=== PATIENT | female | born 1950 | race Caucasian/White ===

== ENCOUNTER → 2020-01-08 16:01 | Outpatient (CLI) | payer MEDICARE, SELFPAY ==
--- NOTE | ~2020-01-08 | XR_ITS ---
EXAMINATION:[id number] DATE: 01/08/2020 16:20 INDICATION: Neck pain TECHNIQUE: AP, lateral, lateral swimmers and odontoid views of the cervical spine are provided. COMPARISON: 09/15/2013 FINDINGS: Alignment is normal. Odontoid is intact. Normal atlantoaxial interval. Vertebral body heights are no rmal. Disc spaces are normal. 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 Mild facet oste oarthritis at C7-T1. Prevertebral soft tissues are normal. Visualized apices of the lungs are clear. IMPRESSION: 1. Minimal cervical spondylosis. Reviewed, dictated and finalized at location A. 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
== END ==
PROVIDERS: PCP Family Medicine; Visit Provider Nurse Practitioner Family
DX: M47.813 Spondylosis without myelopathy or radiculopathy, cervicothoracic region (principal)
CPT/HCPCS: 72040

== ENCOUNTER 2021-07-23 02:12 | Day surgery (SDC) | payer MEDICARE, SELFPAY ==
[2021-07-20 12:24] VITALS: BMI 27.8
--- NOTE | 2021-07-22 15:46 | P.PNAN_ITS ---
Anes - Initial Pre Proc Eval Procedure: Operation Date: 07/23/21 08:15 Proposed Procedures p Colonoscopy - Jake León DO Date/Time: 07/22/21 15:46 Surgeon: Jake León DO Pre Op Diagnosis: Rectal Bleeding Patient Data Age: 71 Gender: F Height: 1.63 m Weight: 73.7 kg Allergies Allergy/AdvReac Type Severity Reaction Status Date / Time No Known Allergies Allergy Verified 07/23/21 06:54 Home Medications Medication Instructions Recorded Confirmed Type alprazolam 0.25 mg tablet (Xanax) 0.25 mg PO BID PRN Anxiety 07/02/21 07/23/21 History amitriptyline 25 mg tablet 25 mg PO QHS 07/02/21 07/23/21 History cholecalciferol (vitamin D3) 25 25 mcg PO DAILY 07/02/21 07/23/21 History mcg (1,000 unit) capsule cyclobenzaprine 10 mg tablet 10 mg PO TID 07/02/21 07/23/21 History diclofenac sodium 75 mg 75 mg PO BID 07/02/21 07/23/21 History tablet,delayed release gabapentin 300 mg capsule 300 mg PO DAILY 07/02/21 07/23/21 History propranolol 80 mg capsule,24 80 mg PO DAILY 07/02/21 07/23/21 History hr,extended release vitamin B complex (B 1 tablet PO DAILY 07/02/21 07/23/21 History Complex-Vitamin B12 tablet) Patient hx anesthesia problems: none Family hx anesthesia problems: none Results Review: All pre-operative results and documents have been reviewed as part of the pre- operative evaluation. [facility] Past Medical History Medical History Depression High cholesterol Hypertension Surgical History Surgical History History of carpal tunnel release Family History Family History Father Patient's father is , Onset Age: 79 Cerebrovascular accident Mother Family history of hypothyroidism Hypertension Dementia Patient's mother is Social History Social History Smoking status: Never smoker Alcohol intake: never Substance use: never Substance use type: does not use Living arrangements: with family Spiritual care concerns: No Anes - Eval Final PreProcedure Day of Procedure 07/22/21 15:46 Patient weight: overweight Heart: regular rate and rhythm Lungs: clear to auscultation Airway: Mallampati scale class II Neurological: alert and oriented Last oral intake: >/= 8 hours ASA classification: II Emergent: no Anesthetic plan: proceed Anesthesia type and monitoring: general GIVS and standard monitoring Results Review: All pre-operative results and documents have been reviewed as part of the pre- operative evaluation. Informed Consent: The patient's anesthetic plan and its attendant risks and benefits were discussed with the patient/family/POA. Questions were solicited and answers provided to the satisfaction of the patient/family/POA.
[2021-07-23 06:55] VITALS: BP 128/69; PULSE 88; RESP 16; TEMP 36.4; O2SAT 98; BMI 27.3
[2021-07-23] MEDS: LACTATED RINGERS 1,000 ML 150 ML IV CONT (07:04)
--- NOTE | 2021-07-23 08:23 | WPDHPUPDATE1 ---
History and Physical Update Update Date/Time: 07/23/21 08:23 History and Physical has been reviewed, including an updated exam of the patient. There are NO changes in the patient's condition. Risks, benefits, and alternatives have been discussed and questions answered. Patient agrees to proceed with procedure.
[2021-07-23 09:00] VITALS: BP 145/71; PULSE 70; RESP 16; O2SAT 100
[2021-07-23 09:10] VITALS: BP 103/68; PULSE 66; RESP 15; O2SAT 100
[2021-07-23 09:20] VITALS: BP 140/81; PULSE 66; RESP 18; O2SAT 100
== END 2021-07-23 09:42 | disposition home or self-care (01) ==
PROVIDERS: PCP Family Medicine; Visit Provider Surgery
PROC: 0DJD8ZZ Inspection of Lower Intestinal Tract, Via Natural or Artificial Opening Endoscopic (ICD-10-PCS; CPT 45378; principal; 2021-07-23 08:15)
DX: Z12.11 Encounter for screening for malignant neoplasm of colon (principal); C20 Malignant neoplasm of rectum; D12.0 Benign neoplasm of cecum; D12.5 Benign neoplasm of sigmoid colon; K59.00 Constipation, unspecified; K62.5 Hemorrhage of anus and rectum; I10 Essential (primary) hypertension; E78.00 Pure hypercholesterolemia, unspecified; F32.A Depression, unspecified
CPT/HCPCS: 45380; 45381; 88305; J2704; J7120

== ENCOUNTER 2021-07-27 10:22 | Outpatient (CLI) | payer MEDICARE, SELFPAY ==
[2021-07-27 11:10] LABS: Hematocrit 39.1 % (37.0-47.0); Hemoglobin 11.9 g/dL (12.0-15.0); Mean Corpuscular HGB Conc 30.4 g/dl (32-36); Mean Corpuscular Hemoglobin 24.6 pg (26-34); Mean Platelet Volume 9.9 fl (7.4-10.4); Platelet Count Result 331 k/mm3 (150-375); Red Blood Count 4.83 M/mm3 (4.2-5.4)
[2021-07-27 11:42] LABS: Alanine Aminotransferase 14 U/L (6-35); Albumin Level 3.8 g/dL (3.5-5.1); Alkaline Phosphatase 75 U/L (38-126); Aspartate Amino Transferase 27 U/L (14-36); Bilirubin,Total 0.3 mg/dL (0.2-1.3)
[2021-07-27 12:17] LABS: Carcinoembryonic Antigen 1.3 ng/mL (0.0-3.0)
== END 2021-07-27 10:23 | disposition home or self-care (01) ==
LOC: ANHLAB 10:25
PROVIDERS: PCP Family Medicine; Visit Provider Surgery
DX: C20 Malignant neoplasm of rectum (principal)
CPT/HCPCS: 36415; 80076; 82378; 85027

== ENCOUNTER → 2021-07-29 14:09 | Outpatient (CLI) | payer MEDICARE, SELFPAY ==
--- NOTE | ~2021-07-29 | CT_ITS ---
EXAMINATION: CT chest abdomen pelvis w con DATE: 07/29/2021 14:49 INDICATION: Malignant neoplasm of rectum. TECHNIQUE: Computed tomography (CT) of the chest, abdomen, and pelvis was performed with 100 mL Omnip aque 300 intravenous contrast. Automated exposure control and iterative reconstruction technique were employed. The dose-length product was 818.02 mGy-cm. COMPARISON: None FINDINGS: CHEST CT: There is mild scarring at the lung apices. There is mild atelectasis in the lungs. No pleural effusio n. The heart size is normal. No pericardial effusion. There is mild thoracic spondylosis. ABDOMEN/PELVIS CT: There is a 6 mm cyst in the liver. The gallbladder, spleen, pancreas, and adrenal glands are normal. There are cysts in right kidney measuring up to 1.6 cm. Left kidney is normal. There is focal wall th ickening of the rectum, consistent with primary malignancy. There are enlarged perirectal and left in ternal iliac lymph nodes. For example, a perirectal node measures 1.5 x 2.0 cm. There are no dilated loops of bowel. The appendix is normal. Pelvic floor dysfunction is noted. There is trace ascites. Th ere are chronic bilateral L5 pars defects. There is 6 mm anterolisthesis of L5 on S1. There is mild l umbar spondylosis. IMPRESSION: 1. Focal wall thickening of the rectum, consistent with primary malignancy. 2. Perirectal and left internal iliac lymphadenopathy, consistent with metastatic disease. Reviewed, dictated and finalized at location A. IMPRESSION: 1. Focal wall thickening of the rectum, consistent with primary malignancy. 2. Perirectal and left internal iliac lymphadenopathy, consistent with metastat ic disease.
[2021-07-29 14:35] LABS: Estimated Glomerular Filt Rate > 60
== END ==
PROVIDERS: PCP Family Medicine; Visit Provider Surgery
DX: C20 Malignant neoplasm of rectum (principal); R59.0 Localized enlarged lymph nodes
CPT/HCPCS: 71260; 74177; Q9967

== ENCOUNTER → 2021-08-04 11:50 | Outpatient (CLI) | payer MEDICARE, SELFPAY ==
--- NOTE | ~2021-08-04 | MR_ITS ---
EXAMINATION: MR pelvis wo/w con INDICATION: Rectal cancer TECHNIQUE: Coronal SSFSE ARC, Coronal, Axial, and Sagittal T2 FRFSE small [id number], Coronal 2D F IESTA FatSat, Axial SSFSE BH ARC, Axial 3D DualEcho BH, Axial STIR, Axial DWI b=500, pre and dynamic postcontrast Axial LAVA ARC COMPARISON: CT, 07/29/2021 CONTRAST: Multihance, 14 cc FINDINGS: Again seen is irregular wall thickening involving an approximately 6.2 cm segment of the re ctum, consistent with known malignancy. This measures up to 1.6 cm in thickness. Although somewhat li mited by motion artifact, there appears to be a focus of tumor penetrating through the rectal wall an d abutting the mesorectal fascia at the left posterolateral aspect of the tumor. Enlarged perirectal lymph nodes measure up to 1.4 cm. Left internal iliac lymph nodes are also noted which measure up to 1 cm. There are no dilated loops of bowel. Mild lumbar spondylosis is noted. IMPRESSION: 1. Irregular wall thickening of the rectum, consistent with known malignancy, with invasion through t he rectal and abutting the mesorectal fascia. 2. Pelvic lymphadenopathy, consistent with metastatic disease. Reviewed, dictated and finalized at location A. IMPRESSION: 1. Irregular wall thickening of the rectum, consistent with known malignancy, w ith invasion through the rectal and abutting the mesorectal fascia. 2. Pelvic lymphadenopathy, consistent with metastatic disease.
== END ==
PROVIDERS: PCP Family Medicine; Visit Provider Surgery
DX: C20 Malignant neoplasm of rectum (principal); R59.0 Localized enlarged lymph nodes
CPT/HCPCS: 72197; A9577

== ENCOUNTER 2021-10-01 14:22 | Outpatient (CLI) | payer MEDICARE, SELFPAY ==
[2021-10-01 15:24] LABS: SARS-CoV-2 RNA PCR Negative (Negative)
== END 2021-10-01 14:23 | disposition home or self-care (01) ==
LOC: CHSLAB 14:25
PROVIDERS: PCP Family Medicine; Visit Provider Family Medicine
DX: Z20.822 Contact with and (suspected) exposure to COVID-19 (principal)
CPT/HCPCS: C9803; U0003; U0005

== ENCOUNTER 2023-04-21 00:04 | Day surgery (SDC) | payer MEDICARE, SELFPAY ==
[2023-04-11 15:00] VITALS: BMI 26.6
--- NOTE | 2023-04-19 09:00 | SUR.PREOP ---
Patient called regarding upcoming procedure. Reviewed preop instructions, appointment times, and procedure prep. Instructed pt to bring stoma supplies with her for the procedure.
[2023-04-21 06:22] VITALS: BP 157/85; PULSE 70; RESP 18; TEMP 36.1; O2SAT 100
[2023-04-21] MEDS: LACTATED RINGERS 1,000 ML 150 ML IV CONT (06:38)
--- NOTE | 2023-04-21 07:28 | PM.IMHP ---
H&P: HPI History of Present Illness Date/Time: 04/21/23 07:28 Chief Complaint: Rectal cancer Narrative: this is a 73-year-old woman who presents for follow-up colonoscopy after recent diagnosis of rectal cancer 2 years ago. She underwent neoadjuvant chemoradiation followed by abdominoperineal resection with permanent colostomy in April of 2022. She denies any significant changes since. Her ostomy has been functioning well. Review of Systems Review of Systems: All systems reviewed & are unremarkable except as noted in HPI and below Constitutional: Constitutional: Denies chills, Denies fever(s), Denies headache(s) and Denies weight loss Eyes: Eyes: Denies change in vision ENT: Denies dizziness, Denies headache(s), Denies neck mass and Denies throat swelling Cardiovascular: Cardiovascular: Denies chest pain, Denies lightheadedness and Denies dyspnea Respiratory: Respiratory: Denies cough, Denies dyspnea and Denies wheezing Gastrointestinal: Gastrointestinal: Denies abdominal pain, Denies change in bowel habits, Denies nausea and Denies vomiting Genitourinary: Genitourinary: Denies hematuria and Denies dysuria Musculoskeletal: Musculoskeletal: Reports as per HPI Integumentary/Breasts: Skin/Breast: Reports as per HPI Neurologic: Denies dizziness and Denies headache(s) Allergic/Immunologic: Allergic/Immunologic: Denies throat swelling and Denies wheezing [facility] Past Medical History Medical History Depression High cholesterol Hypertension Surgical History Surgical History History of carpal tunnel release Family History Family History Father Patient's father is , Onset Age: 79 Cerebrovascular accident Mother Family history of hypothyroidism Hypertension Dementia Patient's mother is Social History Social History Smoking status: Never smoker Alcohol intake: never Substance use: never Substance use type: does not use Living arrangements: with family Occupation/Education: retired Spiritual care concerns: No Meds Home Medications and Allergies Home Medications Medication Instructions Recorded Confirmed Type alprazolam 0.25 mg tablet (Xanax) 0.25 mg PO BID PRN Anxiety 07/02/21 04/11/23 History amitriptyline 25 mg tablet 25 mg PO QHS 07/02/21 04/11/23 History cholecalciferol (vitamin D3) 25 25 mcg PO DAILY 07/02/21 04/11/23 History mcg (1,000 unit) capsule cyclobenzaprine 10 mg tablet 10 mg PO BID 07/02/21 04/11/23 History propranolol 80 mg capsule,24 80 mg PO DAILY 07/02/21 04/21/23 History hr,extended release ascorbic acid (vitamin C) 500 mg 500 mg PO DAILY 04/11/23 04/11/23 History tablet,extended release calcium 600 mg capsule 1,200 mg PO DAILY 04/11/23 04/11/23 History ibandronate 150 mg tablet 150 mg PO MONTHLY 04/11/23 04/11/23 History mecobalamin (vitamin B12) 2,500 2,500 mcg PO DAILY 04/11/23 04/11/23 History mcg chewable tablet Allergies Allergy/AdvReac Type Severity Reaction Status Date / Time fentanyl AdvReac Nausea and Verified 04/21/23 06:20 Vomiting Vital Signs Vital Signs - 24 hr 04/21/23 06:22 Temperature 36.1 C L Pulse Rate 70 Respiratory Rate 18 Blood Pressure 157/85 H Pulse Oximetry 100 Oxygen Delivery Room Air Exam Const: General: no acute distress and alert Orientation/consciousness: patient oriented x3 HENMT: Head: normocephalic and atraumatic Ears: hearing grossly normal bilaterally Face/Nose/Sinus: Normal nares present Mouth: Yes Normal oral and palatal mucosa present Eyes: Periorbital: periorbital findings normal Sclera: sclerae normal EOM: EOMs intact bilaterally Neck: Neck: normal visual inspection, no lymphadenopathy and trachea midline Chest:
--- NOTE | 2023-04-21 07:33 | WPDANESEPPF ---
Anes - Initial Pre Proc Eval Procedure: Operation Date: 04/21/23 07:30 Proposed Procedures p Colonoscopy Through Stoma - Jake León DO Date/Time: 04/21/23 07:33 Surgeon: Jake León DO Pre Op Diagnosis: hx of rectal ca Patient Data Age: 73 Gender: F Height: 1.6 m Weight: 71 kg Last Vital Signs Temp 97 F L 04/21/23 06:22 Pulse 70 04/21/23 06:22 Resp 18 04/21/23 06:22 BP 157/85 H 04/21/23 06:22 Pulse Ox 100 04/21/23 06:22 O2 Del Method Room Air 04/21/23 06:22 Allergies Allergy/AdvReac Type Severity Reaction Status Date / Time fentanyl AdvReac Nausea and Verified 04/21/23 06:20 Vomiting Home Medications Medication Instructions Recorded Confirmed Type alprazolam 0.25 mg tablet (Xanax) 0.25 mg PO BID PRN Anxiety 07/02/21 04/11/23 History amitriptyline 25 mg tablet 25 mg PO QHS 07/02/21 04/11/23 History cholecalciferol (vitamin D3) 25 25 mcg PO DAILY 07/02/21 04/11/23 History mcg (1,000 unit) capsule cyclobenzaprine 10 mg tablet 10 mg PO BID 07/02/21 04/11/23 History propranolol 80 mg capsule,24 80 mg PO DAILY 07/02/21 04/21/23 History hr,extended release ascorbic acid (vitamin C) 500 mg 500 mg PO DAILY 04/11/23 04/11/23 History tablet,extended release calcium 600 mg capsule 1,200 mg PO DAILY 04/11/23 04/11/23 History ibandronate 150 mg tablet 150 mg PO MONTHLY 04/11/23 04/11/23 History mecobalamin (vitamin B12) 2,500 2,500 mcg PO DAILY 04/11/23 04/11/23 History mcg chewable tablet Patient hx anesthesia problems: none Family hx anesthesia problems: none Results Review: All pre-operative results and documents have been reviewed as part of the pre-operative evaluation. [facility] Past Medical History Medical History Depression High cholesterol Hypertension Surgical History Surgical History History of carpal tunnel release Family History Family History Father Patient's father is , Onset Age: 79 Cerebrovascular accident Mother Family history of hypothyroidism Hypertension Dementia Patient's mother is Social History Social History Smoking status: Never smoker Alcohol intake: never Substance use: never Substance use type: does not use Living arrangements: with family Occupation/Education: retired Spiritual care concerns: No Anes - Eval Final PreProcedure Day of Procedure 04/21/23 07:33 Patient weight: normal Heart: regular rate and rhythm Lungs: clear to auscultation Airway: Mallampati scale class II Neurological: alert and oriented Last oral intake: >/= 8 hours ASA classification: III Emergent: no Anesthetic plan: proceed Anesthesia type and monitoring: general GIVS and standard monitoring Results Review: All pre-operative results and documents have been reviewed as part of the pre-operative evaluation. Informed Consent: The patient's anesthetic plan and its attendant risks and benefits were discussed with the patient/family/POA. Questions were solicited and answers provided to the satisfaction of the patient/family/POA.
[2023-04-21 07:58] VITALS: BP 128/64; PULSE 68; RESP 22; O2SAT 100
[2023-04-21 08:08] VITALS: BP 157/78; PULSE 62; RESP 19; O2SAT 100
[2023-04-21 08:18] VITALS: BP 153/81; PULSE 61; RESP 16; O2SAT 100
== END 2023-04-21 08:28 | disposition home or self-care (01) ==
PROVIDERS: PCP Family Medicine; Visit Provider Surgery
PROC: 0DJD8ZZ Inspection of Lower Intestinal Tract, Via Natural or Artificial Opening Endoscopic (ICD-10-PCS; CPT 45378; principal; 2023-04-21 07:30)
DX: Z08 Encounter for follow-up examination after completed treatment for malignant neoplasm (principal); I10 Essential (primary) hypertension; E78.00 Pure hypercholesterolemia, unspecified; F32.A Depression, unspecified; Z79.83 Long term (current) use of bisphosphonates; Z98.890 Other specified postprocedural states; Z90.49 Acquired absence of other specified parts of digestive tract; Z93.3 Colostomy status; Z85.048 Personal history of other malignant neoplasm of rectum, rectosigmoid junction, and anus; Z82.49 Family history of ischemic heart disease and other diseases of the circulatory system
CPT/HCPCS: 44388; J7120

== ENCOUNTER 2024-08-31 12:48 | Outpatient (RCR) | payer MEDICARE, SELFPAY ==
--- NOTE | 2024-08-31 14:03 | OPREHPOC ---
Outpatient Therapy Plan of Care This is a Multidisciplinary Plan of Care that may contain components documented by all disciplines (PT, OT, and ST.) PT Problem 1 PT Problem #1 Knowledge Deficit PT Goal 1 Goal / Goal Update Independent and compliant with HEP. Target Visit 2 PT Problem 2 PT Problem #2 Impaired Strength PT Goal 1 Goal / Goal Update Pt to improve gross LE strength to 4+/5. Target Visit 12 PT Problem 3 PT Problem #3 Impaired Balance PT Goal 1 Goal / Goal Update Pt to improve Tinetti score by 3 points or better to indicate moderate fall risk. Pt to perform TUG in 10 secs or less with LRAD. Target Visit 12 PT Problem 4 PT Problem #4 Impaired Functional Mobility PT Goal 1 Goal / Goal Update Pt to improve 5xSTS to 10 seconds or less. Pt to improve 6MWT distance to 700ft using LRAD and without toe catching. Target Visit 12
--- NOTE | 2024-08-31 14:05 | PTOPEVAL1 ---
Assessment and note entered by Chantal Gonzalez, PT Evaluation Information Assessment Status Evaluation Diagnosis Rectal cancer, neuropathy ICD-10 Condition Codes (PT) Difficulty Walking R26.2,Weakness R53.1 Other ICD-10 Condition Codes ( G62.0, T45.1X5A PT) Onset 04/09/2022 Subjective Information Has a history of rectal cancer and underwent 2 surgeries including colostomy in 2022 with permanent ostomy. Her other surgery was for removal of her tailbone and sacrum, however pt does not know how much of the sacrum they took out . She notes her balance problems started shortly after the surgery. She enters the clinic intermittently using a cane and reports she just started using it, denies falls in the last 6 months. States she does have an ostomy and also currently has an abscess in her rectum so she has a mushroom drain for that. Her goal is to improve her balance as much as she can. She is currently off chemo and the doctor let her off it for about 2 months, but states she might have to go back on it in September because her [employer] found more nodules. Reported Pain Level Pain Score 0: Self Report Assessment PT Clinical Summary Mrs. Riley is a 74 yo female presenting for skilled PT clinic for difficulty walking and imbalance. She demonstrates high risk for falls per Tinetti and also demonstrates moderate sway and deficits during gait such as toe catching and path deviation that contribute to fall risk. She also demonstrates moderate deficits in bilateral hip strength. She has recently begun using a cane and education was provided on proper device height and sequencing. She will benefit from skilled PT intervention to improve LE strength and balance to reduce fall risk and improve quality of life. Plan of Care Interventions Gait Training,Manual Therapy,Neuro Re-education, Patient/Caregiver Education,Therapeutic Activities ,Therapeutic Exercise PT Services Indicated Yes Treatment Frequency and 2x/week for 12 visits Duration These treatments will address the objective and functional deficits as defined above. The patient will be advanced safely and appropriately in order for the patient to progress towards his/her prior level of function. Additional exercises will be introduced and as well as a comprehensive home exercise program upon discharge, if needed, ?to ensure carryover of functional gains achieved in the clinic. This treatment plan has been reviewed and agreement upon by the patient.
--- NOTE | 2024-10-04 15:23 | OPREHPOC ---
Outpatient Therapy Plan of Care This is a Multidisciplinary Plan of Care that may contain components documented by all disciplines (PT, OT, and ST.) PT Problem 1 PT Problem #1 Knowledge Deficit PT Goal 1 Goal / Goal Update Independent and compliant with HEP. Target Visit 2 Progress Met PT Problem 2 PT Problem #2 Impaired Strength PT Goal 1 Goal / Goal Update Pt to improve gross LE strength to 4+/5. - partially met Target Visit 12 Progress Partially Met PT Problem 3 PT Problem #3 Impaired Balance PT Goal 1 Goal / Goal Update Pt to improve Tinetti score by 3 points or better to indicate moderate fall risk. -met Pt to perform TUG in 10 secs or less with LRAD. - progress Target Visit 12 Progress Partially Met PT Problem 4 PT Problem #4 Impaired Functional Mobility PT Goal 1 Goal / Goal Update Pt to improve 5xSTS to 10 seconds or less. - progress Pt to improve 6MWT distance to 700ft using LRAD and without toe catching. Target Visit 12 Progress Not Met
--- NOTE | 2024-10-04 15:23 | PTOPPROG ---
Assessment and note entered by Chantal Gonzalez, PT Evaluation Information Assessment Status Progress Diagnosis Rectal cancer, neuropathy ICD-10 Condition Codes (PT) Difficulty Walking R26.2,Weakness R53.1 Other ICD-10 Condition Codes ( G62.0, T45.1X5A PT) Onset 04/09/2022 Subjective Information Mrs. Riley reports feeling steadier on her feet than prior to starting therapy. She continues to take her cane with her everywhere per PT recommendation in case she were to lose balance. She also feels like her strength has improved a little. She has not had any falls since starting therapy. Assessment PT Clinical Summary Mrs. Riley has attended 10 skilled PT visits for imbalance and weakness. She has made progress toward her goals addressing LE strength, balance and functional mobility and she is close to meeting them. She still demonstrates bilateral hip flexion and knee flexion weakness as well as mild balance deficits that contribute to fall risk. She will benefit from continued therapy to make further progress to reduce fall risk and improve strength. Plan of Care Interventions Gait Training,Manual Therapy,Neuro Re-education, Patient/Caregiver Education,Therapeutic Activities ,Therapeutic Exercise PT Services Indicated Yes Treatment Frequency and Continue per original POC Duration These treatments will address the objective and functional deficits as defined above. The patient will be advanced safely and appropriately in order for the patient to progress towards his/her prior level of function. Additional exercises will be introduced and as well as a comprehensive home exercise program upon discharge, if needed, ?to ensure carryover of functional gains achieved in the clinic. This treatment plan has been reviewed and agreement upon by the patient.
--- NOTE | 2024-10-12 14:44 | OPREHPOC ---
Outpatient Therapy Plan of Care This is a Multidisciplinary Plan of Care that may contain components documented by all disciplines (PT, OT, and ST.) PT Problem 1 PT Problem #1 Knowledge Deficit PT Goal 1 Goal / Goal Update Independent and compliant with HEP. Target Visit 2 Progress Met PT Problem 2 PT Problem #2 Impaired Strength PT Goal 1 Goal / Goal Update Pt to improve gross LE strength to 4+/5. - partially met Target Visit 12 Progress Partially Met PT Problem 3 PT Problem #3 Impaired Balance PT Goal 1 Goal / Goal Update Pt to improve Tinetti score by 3 points or better to indicate moderate fall risk. -met Pt to perform TUG in 10 secs or less with LRAD. - met Target Visit 12 Progress Met PT Goal 2 Goal / Goal Update Improve Tinetti to low fall risk. Target Visit 14 PT Problem 4 PT Problem #4 Impaired Functional Mobility PT Goal 1 Goal / Goal Update Pt to improve 5xSTS to 10 seconds or less. -met Pt to improve 6MWT distance to 700ft using LRAD and without toe catching. -met but had toe catching Target Visit 12 Progress Partially Met
--- NOTE | 2024-10-12 14:44 | PTOPPROG ---
Assessment and note entered by Chantal Gonzalez, PT Evaluation Information Assessment Status Progress Diagnosis Rectal cancer, neuropathy ICD-10 Condition Codes (PT) Difficulty Walking R26.2,Weakness R53.1 Other ICD-10 Condition Codes ( G62.0, T45.1X5A PT) Onset 04/09/2022 Subjective Information Terri Olmos reports feeling like her balance has improved but she is still scared of falling. She reports she almost fell the other day but she was able to correct her balance. She continues to take her cane with her when she's out of the house but she is afraid to walk anywhere outside alone in case she were to fall and couldn't call for help. Assessment PT Clinical Summary Mrs. Riley has attended 12 skilled PT visits for imbalance and weakness. She has made good improvements in her static and dynamic balance as evidenced by 5xSTS and TUG, and she has also improved her endurance and met her goal for 6MWT distance. She does still demonstrate weakness in hip and knee flexion strength and continues to demonstrate occasional toe catching and slight losses of balance when ambulating and turning. Pt will benefit from continued skilled PT intervention for 2 additional visits to make further progress in LE strength and balance along with additional strategies for fall prevention and safety at home and in the community. Plan of Care Interventions Gait Training,Manual Therapy,Neuro Re-education, Patient/Caregiver Education,Therapeutic Activities ,Therapeutic Exercise PT Services Indicated Yes Treatment Frequency and 1x/week for 2 additional visits Duration These treatments will address the objective and functional deficits as defined above. The patient will be advanced safely and appropriately in order for the patient to progress towards his/her prior level of function. Additional exercises will be introduced and as well as a comprehensive home exercise program upon discharge, if needed, ?to ensure carryover of functional gains achieved in the clinic. This treatment plan has been reviewed and agreement upon by the patient.
--- NOTE | 2024-12-19 09:10 | PCPTNOTE ---
Mrs. Riley was seen for 13 skilled PT visits addressing gait and balance deficits. She had not been to therapy since October 17. Pt was contacted by phone call today and she states that she is planning on getting a surgery but would like to return to therapy when she is able. Her chart will be discharged this date with plan to establish a new chart when she returns for PT. Chantal Gonzalez
== END 2024-11-29 23:59 | disposition home or self-care (01) ==
LOC: CHSPT 12:48
DX: C20 Malignant neoplasm of rectum (principal); G62.0 Drug-induced polyneuropathy; T45.1X5A Adverse effect of antineoplastic and immunosuppressive drugs, initial encounter
CPT/HCPCS: 97110; 97112; 97161; 97530; 97750

== ENCOUNTER 2024-10-20 10:52 | Emergency (ER) | payer MEDICARE, SELFPAY ==
[2024-10-20] VITALS (42 sets, daily range): BP systolic 131–174; BP diastolic 63–153; PULSE 65–78; RESP 16–19; TEMP 35.9–36.7; O2SAT 96–100
--- NOTE | ~2024-10-20 | XR_ITS ---
EXAMINATION: XR abdomen/kub 1V, 10/20/2024 14:10 CDT HISTORY: NGT placement COMPARISON: No comparisons available. Technique: 3 view. Findings: There are dilated loops of small bowel the largest measuring 4 cm. No free air. No abnormal calcifications No acute osseous abnormality. Nasogastric tube terminates in the stomach. Impression: 1. Early small bowel obstruction Reviewed, dictated and finalized at location A. Impression: 1. Early small bowel obstruction
--- NOTE | ~2024-10-20 | XR_ITS ---
EXAMINATION: XR abdomen obstructive series, 10/20/2024 11:50 CDT HISTORY: lower abdominal pain, nausea/vomiting x1 day COMPARISON: No comparisons available. Technique: 3 view. Findings: Multiple dilated loops of small bowel the largest 5 cm with multiple air-fluid levels. No free air. No abnormal calcifications No acute osseous abnormality. Impression: 1. Small bowel obstruction. CT recommended Reviewed, dictated and finalized at location A. Impression: 1. Small bowel obstruction. CT recommended
--- NOTE | ~2024-10-20 | CT_ITS ---
Terri Riley EXAMINATION: CT abdomen pelvis w con COMPARISON: None HISTORY: SBO, lower abdominal pain, nausea/vomiting x1 day. TECHNIQUE: Axial images were obtained through the abdomen, pelvis post administration of IV contrast. Oral contrast was also administered. Coronal reconstruction images were obtained from the axial views. CT scan performed using dose optimization techniques including the following automated exposure control; adjustment of mA and/or kV; use of iterative reconstruction technique. Automatic exposure control was used to reduce radiation dose. Permanent radiation dose record is archived to PACS. FINDINGS: CT abdomen: LUNG BASES: Lung bases chronic changes. LIVER: Minimal hepatic steatosis. Portal vein patent. No intrahepatic biliary duct dilatation. SPLEEN: Unremarkable. KIDNEYS: Right Kidney: Right kidney midpole simple cyst 2 x 2 cm. Left Kidney: Unremarkable. No calculi. No hydronephrosis ADRENAL GLANDS: Unremarkable. PANCREAS: Unremarkable. GALLBLADDER/BILIARY: Unremarkable. No biliary dilatation. STOMACH AND ESOPHAGUS: There is distention of the stomach. Thickening of the esophagus with hyperemia may relate to underlying esophagitis with gastritis. BOWEL/MESENTERY: Postsurgical changes noted in the bowel. Moderate fecal content throughout the residual large bowel, there is no colitis or diverticulitis. Appendix appears normal. There is stranding within the mesentery. There are dilated loops of small bowel in the right lower quadrant the largest measuring 5 cm immediately adjacent to the right lower quadrant hernia. There are decompressed small bowel loops distal to this point which appear Thickened. ADENOPATHY/RETROPERITONEUM: No lymphadenopathy. AORTA/VASCULATURE: Normal caliber aorta. FREE FLUID OR FREE AIR: None. CT pelvis: SOLID ORGANS/REPRODUCTIVE: Post hysterectomy. No adnexal mass. BLADDER: Bladder is distended. OSSEOUS STRUCTURES: No sclerotic or lytic lesions. Moderate degenerative changes lumbar spine. OVERLYING SOFT TISSUES: Postsurgical changes in the abdominal wall with defect in the left hemiabdomen containing bowel with probable ostomy, clinical correlation is required. There is a defect within the anterior abdominal wall overlying the pelvis to the right of midline containing a loop of bowel which appears hyperemic measuring 3.5 cm. IMPRESSION: Small bowel obstruction with incarcerated hernia detailed above. Surgical consultation recommended Reviewed, dictated and finalized at location A. IMPRESSION: Small bowel obstruction with incarcerated hernia detailed above. Surgical consu ltation recommended
--- NOTE | 2024-10-20 10:57 | ED.ABDPAIN ---
HPI - Abdominal Pain General Chief Complaint: Abdominal Pain Stated Complaint: abdominal pain Time Seen by Provider: 10/20/24 10:57 Source: patient and family Mode of arrival: ambulatory Limitations: no limitations History of Present Illness HPI narrative: Patient is a 74-year-old female with abdominal pain and no stool in her colostomy for about 12 hours. Normally she has some small amounts of colostomy stool. She has had extensive abdominal surgeries in the past for rectal cancer. Last surgery was 2022. She goes to [facility]. She had associated nausea vomiting this morning. MD elicited complaint: abdominal pain Pertinent past history: other (Bowel obstructions an ileus, rectal cancer with multiple surgeries) Onset (ago): day(s) (2) Pain Consistency: constant Location: diffuse, LUQ, RUQ, RLQ and LLQ Severity: moderate Pain scale (0-10): 5 Quality: sharp Radiation: none Migration to: no migration Exacerbating factors: nothing Relieving factors: nothing Context: confirms history of similar episodes Associated symptoms: nausea and vomiting Treatments prior to arrival: other (None) Related Data Home Medications ?Medication ?Instructions ?Recorded ?Confirmed ?Last Taken ?Type alprazolam 0.25 mg tablet (Xanax) 0.25 mg PO BID PRN Anxiety 07/02/21 04/11/23 Unknown History amitriptyline 25 mg tablet 25 mg PO QHS 07/02/21 04/11/23 Unknown History cholecalciferol (vitamin D3) 25 25 mcg PO DAILY 07/02/21 04/11/23 Unknown History mcg (1,000 unit) capsule cyclobenzaprine 10 mg tablet 10 mg PO BID 07/02/21 04/11/23 Unknown History propranolol 80 mg capsule,24 80 mg PO DAILY 07/02/21 04/21/23 04/21/23 History hr,extended release 0430 ascorbic acid (vitamin C) 500 mg 500 mg PO DAILY 04/11/23 04/11/23 Unknown History tablet,extended release calcium 600 mg capsule 1,200 mg PO DAILY 04/11/23 04/11/23 Unknown History ibandronate 150 mg tablet 150 mg PO MONTHLY 04/11/23 04/11/23 Unknown History mecobalamin (vitamin B12) 2,500 2,500 mcg PO DAILY 04/11/23 04/11/23 Unknown History mcg chewable tablet Allergies Allergy/AdvReac Type Severity Reaction Status Date / Time fentanyl AdvReac Nausea and Verified 10/20/24 11:12 Vomiting Review of Systems Review of Systems: All systems reviewed & are unremarkable except as noted in HPI and below Constitutional: Constitutional: Reports no additional constitutional complaints Eyes: Eyes: Reports no additional eye complaints ENT: Reports system reviewed and no additional complaints, except as documented Cardiovascular: Cardiovascular: Reports no additional cardiovascular complaints Respiratory: Respiratory: Reports no additional respiratory complaints Gastrointestinal: Gastrointestinal: Reports no additional gastrointestinal complaints Genitourinary: Genitourinary: Reports no additional female genitourinary complaints Musculoskeletal: Musculoskeletal: Reports no additional musculoskeletal complaints Integumentary/Breasts: Skin/Breast: Reports system reviewed and no additional complaints, except as docu Neurologic: Reports system reviewed and no additional complaints, except as documented Psychiatric: Psychiatric: Reports no additional psychiatric complaints Endocrine: Endocrine: Reports no additional endocrine complaints Hematologic/Lymphatic: Hematologic/Lymphatic: Reports no additional hematologic/lymphatic complaints Allergic/Immunologic: Allergic/Immunologic: Reports no additional allergic/immunologic complaints FORMERLY [facility], 1928–1983 Past Medical History Medical History Hypertension High cholesterol Depression Surgical History Surgical History History of carpal tunnel release Family History Family History Father Patient's father is , Onset Age: 79 Cerebrovascular accident Mother Family history of hypothyroidism Hypertension Dementia Patient's mother is Social History Social History Smoking status: Never smoker Alcohol intake: never Substance use: never Substance use type: does not use Living arrangements: with family Occupation/Education: retired Spiritual care concerns: No Exam Const: General: healthy appearing Nutritional Appearance: well nourished Orientation/consciousness: patient oriented x3 HENMT: Head: normal to inspection Ears: external ears normal Face/Nose/Sinus: Normal external nose present Eyes: Conjunctivae: conjunctivae normal Pupils: Equal, round and reactive pupils present EOM: EOMs intact bilaterally Neck: Neck: normal visual inspection Chest: Chest palpation & inspection: normal inspection of the chest Resp: Effort & Inspection: normal respiratory effort and not labored Auscultation: clear to auscultation bilaterally and no crackles Cardio: Rate: regular rate Rhythm: regular rhythm Heart sounds: no murmurs GI: Inspection: non-distended GI Palp: Yes Soft to palpation, Yes Tenderness to palpation present (GI) (Diffuse mid abdomen), No Guarding due to palpation present (GI), No Rigid due to palpation, No Hernia present, No Palpable mass present and Yes Rebound tenderness present Auscultation: bowels sounds not normal and Hypoactive bowel sounds present : General: Yes bladder normal to palpation Back/Spine/Pelvis: Back: no CVA tenderness Skin: General skin exam: normal color Rashes: no rashes Wounds: no wounds Neuro: General: patient oriented x3, moves all extremities and no meningeal signs Extrem: General: normal to inspection, no clubbing, cyanosis or edema and no pedal edema Psych: Mental Status: mental status grossly normal Affect: normal affect Attitude: cooperative Course Vital Signs Vital signs: Vital Signs Temperature 35.9 C L 10/20/24 10:52 Pulse Rate 69 10/20/24 10:52 Respiratory Rate 16 10/20/24 10:52 Blood Pressure 136/81 10/20/24 10:52 Pulse Oximetry 99 10/20/24 10:52 Oxygen Delivery Room Air 10/20/24 10:52 Temperature 35.9 C L 10/20/24 10:52 Pulse Rate 69 10/20/24 10:52 Respiratory Rate 16 10/20/24 10:52 Blood Pressure 136/81 10/20/24 10:52 Pulse Oximetry 99 10/20/24 10:52 Oxygen Delivery Room Air 10/20/24 10:52 MDM - Abdominal Pain MDM Narrative Medical decision making narrative: Patient is a 74-year-old female with abdominal pain and nausea vomiting as well as nothing draining to the colostomy for 12 hours. We will do a GI workup at this time. Transfer patient to [facility] for surgical consultation. Lab Data Attestation: I reviewed the patient's lab results. 10/20/24 12:28 10/20/24 12:28 Labs: Lab Results 10/20/24 Range/Units 12:28 WBC 9.8 (4.8-10.8) K/mm3 RBC 4.77 (4.20-5.40) M/mm3 Hgb 11.2 L (11.7-13.8) g/dL Hct 36.9 (35.0-42.0) % MCV 77.4 L (78.0-102.0) fL MCH 23.5 L (27.0-31.0) pg MCHC 30.4 L (32-36) g/dL RDW 16.6 H (11.6-14.4) % Plt Count 287 (150-420) K/mm3 MPV 9.4 (9.2-11.8) fl Immature Gran % (Auto) 0.2 H (0.0-0.0) % Neut % (Auto) 73.9 H (50.0-70.0) % Lymph % (Auto) 17.6 L (18.0-42.0) % Robertson % (Auto) 8.0 (2.0-11.0) % Eos % (Auto) 0.2 L (1.0-6.0) % Baso % (Auto) 0.1 (0.0-1.0) % Lymph # (Auto) 1.72 (1.10-4.50) K/mm3 Robertson # (Auto) 0.78 (0.10-0.90) K/mm3 Eos # (Auto) 0.02 (0.02-0.50) K/mm3 Baso # (Auto) 0.01 (0.00-0.10) K/mm3 Abs Immat Gran (auto) 0.02 H (0.00-0.00) K/mm3 Absolute Neuts (auto) 7.23 H (1.70-7.20) K/mm3 Absolute Nucleated RBC 0.00 (0.00-0.00) K/mm3 Nucleated RBC % 0.0 (0-0.0) % PT 10.3 (9.50-12.1) Seconds INR 0.9 APTT 26.2 (23.9-30.70) Sec Sodium 138 (137-145) mmol/L Potassium 4.8 (3.4-5.0) mmol/L Chloride 103 (98-107) mmol/L Carbon Dioxide 26 (22-30) mmol/L Anion Gap 9 (4-12) mmol/L BUN 21 H (7-17) mg/dL Creatinine 0.62 L (0.7-1.0) mg/dL Estim Creat Clear Calc 66 ml/min Estimated GFR > 60 (59 - ) Glucose 118 H (65-110) mg/dL Calculated Osmolality 290 (285-295) mOsm/kg Lactic Acid 0.6 (0.4-2.0) mmol/L Calcium 10.1 (8.4-10.2) mg/dL Total Bilirubin 0.5 (0.2-1.3) mg/dL AST 25 (14-36) U/L ALT 13 (6-35) U/L Alkaline Phosphatase 87 (38-126) U/L Total Protein 7.7 (6.3-8.2) g/dL Albumin 4.3 (3.5-5.1) g/dL Lipase 85 (23-300) U/L Imaging Data Attestation: I personally reviewed and interpreted this imaging study as follows: Radiologist's impression: ITS Impressions Abdomen/Pelvis CT 10/20/24 13:31 IMPRESSION: Small bowel obstruction with incarcerated hernia detailed above. Surgical consultation recommended Abdomen X-Ray 10/20/24 14:26 Impression: 1. Early small bowel obstruction Discharge Plan Discharge Clinical Impression: Incarcerated hiatal hernia, Complete small bowel obstruction Patient Disposition: Acute Care Hospital Condition: Stable Patient Language: Georgian Prescriptions: No Action propranolol 80 mg capsule,extended release 24 hr 80 mg PO DAILY cyclobenzaprine 10 mg tablet 10 mg PO BID amitriptyline 25 mg tablet 25 mg PO QHS alprazolam [Xanax] 0.25 mg tablet 0.25 mg PO BID PRN (Reason: Anxiety) cholecalciferol (vitamin D3) 25 mcg (1,000 unit) capsule 25 mcg PO DAILY calcium 600 mg Capsule 1,200 mg PO DAILY ascorbic acid (vitamin C) 500 mg Tablet Extended Release 500 mg PO DAILY ibandronate 150 mg Tablet 150 mg PO MONTHLY mecobalamin (vitamin B12) 2,500 mcg Tablet,Chewable 2,500 mcg PO DAILY Follow-up/Referrals: UNKNOWN,DOCTOR [Non-Staff] Time of Disposition: 14:28
--- OUTSIDE RECORDS SUMMARY | 2024-10-20 11:30 | XMS_ITS | Encounter Summary ---
Author Organization [facility] Address [address] [place] [address] Phone Care Team Providers Care Crate Repairer Name Role Phone Cholo Vela MD Primary Care Provider [phone] Jake León DO Unavailable [phone] Herberth Chao MD Unavailable [phone] Nelida Mccray MD Unavailable Annamarie Song MD Unavailable [phone] Jake León DO Unavailable [phone] Hu Fisher MD Unavailable [phone] Brody Lawson MD Unavailable [phone] Heidi Briceño NP Unavailable Encounter Details Date Type Department Care Team (Latest Contact Info) Description 09/12/2023 Orders Only [facility] Scanning, Provider Social History Tobacco Use Types Packs/Day Years Used Date Smoking Tobacco: Never Passive Smoke Exposure: Past Smokeless Tobacco: Never AUDIT-C Answer Date Recorded Q1: How often do you have a drink containing alcohol? Never 08/09/2023 Q2: How many drinks containi ng alcohol do you have on a typical day when you are drinking? Patient does not drink Q3: How often do you have si x or more drinks on one occasion? Never 08/09/2023 PHQ-2 Answer Date Recorded PHQ-2 Total Score (If total score is 3 or more points, staff should administer the PHQ-9) 2 05/26/2023 Personal Safety Answer Date Recorded Have you ever been in or are you currently in a harmful physical or emotional relationship or is someone making you feel afraid or unsafe? Denies 08/20/2023 Comments No Sex and Gender Information Value Date Recorded Sex Assigned at Not on file Legal Sex Female 8:01 PM UTILITY WORKER FILM PROCESSING Gender Identity Female 01/27/2021 11:55 AM UTILITY WORKER FILM PROCESSING Sexual Orientation Straight 01/27/2021 11 :55 AM UTILITY WORKER FILM PROCESSING documented as of this encounter Plan of Treatment Not on file documented as of this encounter Procedures Procedure Name Priority Date/Time Associated Diagnosis Comments SCAN - PATHOLOGY 09/12/2023 documented in this encounter Results * SCAN - PATHOLOGY (09/12/2023) us Provider Scanning Final Result documented in this encounter Visit Diagnoses Not on filedocumented in this encounter Care Teams Crate Repairer Relationship Specialty Start Date End Date Cholo Vela MD [address] [place] [address] PCP - General Family Medicine 07/07/21 Jake León DO [address] [facility] [address] [place], [place] [id number] Referring Physician Surgery 07/30/21 Herberth Chao MD [facility] [address] [place] [address] Medical Oncologist Hematology 08/12/21 Nelida Mccray MD [address] [place] [address] Radiation Oncologist Radiation Oncology 08/12/21 Annamarie Song MD [address] [facility], [address] [place] [address] Medical Oncology 11/23/21 Jake León DO [address] [place] [address] Plastic Panel Installer Surgery 10/18/22 Hu Fisher MD [address] [facility] [id number] [place] [address] Surgeon Colon and Rectal Surgery 05/18/23 Brody Lawson MD [address] [place] [address] Consulting Physician Plastic Surgery 07/19/23 Heidi Briceño NP [address] [facility] [address] [place] [address] Nurse Practitioner Family Medicine 12/07/23 documented as of this encounter
--- OUTSIDE RECORDS SUMMARY | 2024-10-20 11:30 | XMS_ITS | Encounter Summary ---
Author Organization [facility] Address [address] [place] [address] Phone Care Team Providers Care Social Science Manager Name Role Phone Cholo Vela MD Primary Care Provider [phone] Jake León DO Unavailable [phone] Herberth Chao MD Unavailable [phone] Nelida Mccray MD Unavailable Annamarie Song MD Unavailable [phone] Jake León DO Unavailable [phone] Hu Fisher MD Unavailable [phone] Brody Lawson MD Unavailable [phone] Heidi Briceño NP Unavailable Encounter Details Date Type Department Care Team (Latest Contact Info) Description 02/11/2024 Orders Only [facility] Scanning, Provider [...] more points, staff should administer the PHQ-9) 3 02/09/2024 PHQ-9 Answer Date Recorded PHQ-9 Total Score 10 02/09/2024 Personal Safety Answer Date Recorded Have you ever been in or are you currently in a harmful physical or emotional relationship or is someone making you feel afraid or unsafe? Denies 08/20/2023 Comments No Sex and Gender Information Value Date Recorded Sex Assigned at Not on file Legal Sex Female 8:01 PM WASH DRILLER Gender Identity Female 01/27/2021 11:55 AM WASH DRILLER Sexual Orientation Straight 01/27/2021 11 :55 AM WASH DRILLER documented as of this encounter Plan of Treatment Not on file documented as of this encounter Procedures Procedure Name Priority Date/Time Associated Diagnosis Comments SCAN - PATHOLOGY 02/11/2024 documented in this encounter Results * SCAN - PATHOLOGY (02/11/2024) us Provider Scanning Final Result documented in this encounter Visit Diagnoses Not on filedocumented in this encounter Care Teams Social Science Manager Relationship Specialty Start Date End Date Cholo Vela MD [address] [place], [place] [id number] PCP - General Family Medicine 07/07/21 Jake León DO [address] [facility] [address] [place] [address] Referring Physician Surgery 07/30/21 Herberth Chao MD [address] [facility] [address] [place] [address] Medical Oncologist Hematology 08/12/21 Nelida Mccray MD [address] [facility] [address] [place] [address] Radiation Oncologist Radiation Oncology 08/12/21 Annamarie Song MD [address] [facility] IM MEDICAL ONCOLOGY, [address], [address] [place] [address] Medical Oncology 11/23/21 Jake León DO [address] [place], [place] [id number] Corporate Job Titles Surgery 10/18/22 Hu Fisher MD [address] [facility] [id number] [place] [address] Surgeon Colon and Rectal Surgery 05/18/23 Brody Lawson MD [address] [place] [address] Consulting Physician Plastic Surgery 07/19/23 Heidi Briceño NP [address] [place] [address] Nurse Practitioner Family Medicine 12/07/23 documented as of this encounter
--- OUTSIDE RECORDS SUMMARY | 2024-10-20 11:30 | XMS_ITS | Encounter Summary ---
Author Organization [facility] Address [address] [place] [address] Phone Care Team Providers Care Car Deliverer Name Role Phone Cholo Vela MD Primary Care Provider [phone] Jake León DO Unavailable [phone] Herberth Chao MD Unavailable [phone] Nelida Mccray MD Unavailable Annamarie Song MD Unavailable [phone] Jake León DO Unavailable [phone] Hu Fisher MD Unavailable [phone] Brody Lawson MD Unavailable [phone] Heidi Briceño NP Unavailable Encounter Details Date Type Department Care Team (Latest Contact Info) Description 12/14/2023 Orders Only [facility] Scanning, Provider [...] on file Legal Sex Female 8:01 PM TRUCK DESPATCHER Gender Identity Female 01/27/2021 11:55 AM TRUCK DESPATCHER Sexual Orientation Straight 01/27/2021 11 :55 AM TRUCK DESPATCHER documented as of this encounter Plan of Treatment Not on file documented as of this encounter Procedures Procedure Name Priority Date/Time Associated Diagnosis Comments SCAN - PATHOLOGY 12/14/2023 documented in this encounter Results * SCAN - PATHOLOGY (12/14/2023) us Provider Scanning Final Result documented in this encounter Visit Diagnoses Not on filedocumented in this encounter Care Teams Car Deliverer Relationship Specialty Start Date End Date Cholo Vela MD [address] [place] [address] PCP - General Family Medicine 07/07/21 Jake León DO [address] [facility] 121 [place], [place] [address] Referring Physician Surgery 07/30/21 Herberth Chao MD [address] [facility] [address] [place] [address] Medical Oncologist Hematology 08/12/21 Nelida Mccray MD [address] [place] [address] Radiation Oncologist Radiation Oncology 08/12/21 Annamarie Song MD [address] [facility] IM MEDICAL ONCOLOGY, [address] [place] [address] Medical Oncology 11/23/21 Jake León DO [address] [place] [address] Power House Control Room Operator Surgery 10/18/22 Hu Fisher MD [address] [facility] [phone] [place] [address] Surgeon Colon and Rectal Surgery 05/18/23 Brody Lawson MD [address] [place] [address] Consulting Physician Plastic Surgery 07/19/23 Heidi Briceño NP [address] [facility] [address] [place] [address] Nurse Practitioner Family Medicine 12/07/23 documented as of this encounter
--- OUTSIDE RECORDS SUMMARY | 2024-10-20 11:30 | XMS_ITS | Encounter Summary ---
Author Organization [facility] Address [address] [place] [address] Phone Care Team Providers Care Propagation Manager Name Role Phone Cholo Vela MD Primary Care Provider [phone] Jake León DO Unavailable [phone] Herberth Chao MD Unavailable [phone] Nelida Mccray MD Unavailable Annamarie Song MD Unavailable [phone] Jake León DO Unavailable [phone] Hu Fisher MD Unavailable [phone] Brody Lawson MD Unavailable [phone] Heidi Briceño NP Unavailable Encounter Details Date Type Department Care Team (Latest Contact Info) Description 11/22/2023 Orders Only [facility] Scanning, Provider [...] on file Legal Sex Female 8:01 PM BOTTOM SAW OPERATOR Gender Identity Female 01/27/2021 11:55 AM BOTTOM SAW OPERATOR Sexual Orientation Straight 01/27/2021 11 :55 AM BOTTOM SAW OPERATOR documented as of this encounter Plan of Treatment Not on file documented as of this encounter Procedures Procedure Name Priority Date/Time Associated Diagnosis Comments SCAN - RADIOLOGY/IMAGING 11/22/2023 documented in this encounter Results * SCAN - RADIOLOGY/IMAGING (11/22/2023) Anatomical Region Laterality Modality Other us Provider Scanning Final Result documented in this encounter Visit Diagnoses Not on filedocumented in this encounter Care Teams Propagation Manager Relationship Specialty Start Date End Date Cholo Vela MD [address] [place] [address] PCP - General Family Medicine 07/07/21 Jake León DO [address] [facility] [address] [place], [place] [address] Referring Physician Surgery 07/30/21 Herberth Chao MD [address] [facility] [address] [place] [address] Medical Oncologist Hematology 08/12/21 Nelida Mccray MD [address] [facility] [address] [place] [address] Radiation Oncologist Radiation Oncology 08/12/21 Annamarie Song MD [address] [facility] IM [facility]ICAL ONCOLOGY[address] [place] [address] Medical Oncology 11/23/21 Jake León DO [address] [place] [address] Bale Tie Machine Operator Surgery 10/18/22 uH Fisher MD [address] [facility] [phone] [place] [address] Surgeon Colon and Rectal Surgery 05/18/23 Brody Lawson MD [address] [place] [address] Consulting Physician Plastic Surgery 07/19/23 Heidi Briceño NP [address] [place] [address] Nurse Practitioner Family Medicine 12/07/23 documented as of this encounter
--- OUTSIDE RECORDS SUMMARY | 2024-10-20 11:30 | XMS_ITS | Clinical Summary ---
Author Organization [facility] Address [facility] [place] [address] Care Team Providers Care Carbon Grinder Name Role Phone Cholo Vela MD Primary Care Provider Jake León DO Unavailable [phone] Herberth Chao MD Unavailable [phone] Nelida Mccray MD Unavailable Annamarie Song MD Unavailable [phone] Jake León DO Unavailable [phone] Hu Fisher MD Unavailable [phone] Brody Lawson MD Unavailable Heidi Briceño NP Unavailable Allergies Active Allergy Reactions Criticality Noted Date Comments Fentanyl Dizziness,Nausea & Vomiting Low 04/06/19 23 Medications cholecalciferol (VITAMIN D-3) 400 unit capsuleIndication s:supplement Take 1 tablet/capsule (400 Units total) by mouth every morning Active ascorbic acid (ascorbic acid with kathleen hips) 500 mg tablet,chewableIn dications:supplem ent Take 1 tablet/chew tab (500 mg total) by mouth daily as needed (supplement) Active melatonin 10 mg tablet Take 1 tablet (10 mg total) by mouth nightly as needed (sleep) Active acetaminophen 500 mg capsule Take 2 capsules (1,000 mg total) by mouth every 6 (six) hours as needed (pain) 024 Active Additional Information Patient taking differently:1,000 mg oral Every 6 hours PRN, pain,Indications: Pain, Informant: Self, Reported on 10/09/2024 ibuprofen (ADVIL,MOTRIN) 600 mg tablet Take 1 tablet (600 mg total) by mouth every 8 (eight) hours as needed for pain Active propranolol LA (INDERAL LA) 80 mg 24 hr capsule TAKE 1 CAPSULE (80 MG TOTAL) BY MOUTH DAILY 90 capsule 3 024 Active Additional Information Patient taking differently:80 mg oralEvery morning, Indications: hypertension, Informant: Self, Reported on 10/09/2024 gabapentin (NEURONTIN) 600 mg tabletIndications :Neuropathic Pain Take 1 tablet (600 mg total) by mouth 3 (three) times a day 90 tablet 3 025 Active ibandronate (BONIVA) 150 mg tablet Take 1 tablet (150 mg total) by mouth every 30 (thirty) days Take in AM with glass of water prior to food, don't lie down for 30 minutes. Last dose 06/28/23 3 tablet 3 025 2025 Active Additional Information Patient taking differently:150 mg oral Every 30 days,Take in AM with glass of water prior to food, don't lie down for 30 minutes. Last dose 06/28/23, Indications: Post-Menopausal Osteoporosis, Informant: Self, Reported on 10/09/2024 dexAMETHasone (DECADRON) 4 mg tabletIndications :Rectal cancer (HCC),Chemotherap y induced neutropenia,Recta l cancer 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 (HCC),Local recurrence of rectal cancer (HCC) TAKE TWO TABLETS BY MOUTH ONCE DAILY ON DAYS 2 AND 3 OF EACH TREATMENT CYCLE 24 tablet 2 025 Active Additional Information Patient taking differently: 4 mg oral Once, TAKE TWO TABLETS BY MOUTH ONCE DAILY ON DAYS 2 AND 3 OF EACH TREATMENT CYCLE,Indications: chemotherapy, Informant: Self, Reported on 10/09/2024 amitriptyline (ELAVIL) 50 mg tabletIndications :Fatigue, unspecified type Take 1 tablet (50 mg total) by mouth nightly 100 tablet 1 025 Active Additional Information Patient taking differently:50 mg oral Nightly,Indications: anxiety, depression, sleep, Informant: Self, Reported on 10/09/2024 cyclobenzaprine (FLEXERIL) 10 mg tablet TAKE HALF A TABLET BY MOUTH EVERY MORNING AND EVERY EVENING AND TAKE ONE TABLET AT BEDTIME 135 tablet 1 025 Active rosuvastatin (CRESTOR) 10 mg tabletIndications :Mixed hyperlipidemia TAKE ONE TABLET BY MOUTH NIGHTLY 100 tablet 025 Active clonazePAM (KlonoPIN) 1 mg tabletIndications :Anxiety TAKE ONE TABLET BY MOUTH TWICE A DAY 60 tablet 025 Active clonazePAM (KlonoPIN) 1 mg tabletIndications :Anxiety TAKE ONE TABLET BY MOUTH TWICE A DAY 60 tablet 025 2024 Discontinued Active Problems Patient Care Coordination No te Formatting of this note migh t be different from the original. Call patient and tell her I have sent order for lab to [facility] in [place], Note she should call and make an appointment for the lab to be done. Problem Noted Date Diagnosed Date Pelvic abscess in female 08/20/2023 Hospital discharge follow-up 07/22/2023 Overview (07/22/2023): Use incentive spirometer 10 times an hour while awake, if possible Continue current regimen May use Mucinex if helpful BP is improved Assessment & Plan (07/22/2023 1:50 PM CDT): I have reviewed the hospital record, medications, and relevant testing from Terri Riley's recent admission. Complications and discharge plan have been noted, reviewed. Post-discharge testing has been ordered. Acute postoperative abdominal pain 07/06/2023 Rectal cancer 06/03/2023 Age-related osteoporosis wit hout current pathological fracture 11/29/2022 Encounter for Medicare annual wellness exam 11/07 Assessment & Plan (02/09/2024 9:37 AM VP OUTCOMES): A(n) yearly Medicare Annual Wellness Visit has been performed today. Terri Riley is not up to date on screening tests. She is in need of Cholesterol screening, Hepatitis B, and Hepatitis C screen. She is up to date on needed preventative vaccinations. We discussed healthy lifestyle habits, educational material has been given. Medications reviewed, changes documented as per the medical record and discussed with patient along with risks vs benefits. Specific topics reviewed: drugs, ETOH, and tobacco, importance of regular dental care, importance of regular exercise, importance of varied diet, limit TV, media violence, minimize junk food, and seat belts. Return in 6 months Assessment & Plan (11/26/2022 4:09 PM CDT): A(n) yearly Medicare Annual Wellness Visit has been performed today. Terri Riley is not up to date on screening tests. She is in need of DEXA, Breast cancer screening, and hepatitis C screening . She is not up to date on needed preventative vaccinations; She is in need of Influenza, Pneumonia (Prevnar-13 or Pneumovax- 23), and Zoster. We discussed healthy lifestyle habits, educational material has been given. Medications reviewed, changes documented as per the medical record and discussed with patient along with risks vs benefits. Continuing current regimen Labs had been ordered previously, but since onco has drawn a bunch lately will forgo them for now Plan on repeating our labs in 6 mos Recommended trial of compression stocking (OTC, 20 mm Hg pressure is fine) during upright/daytime hours-- don't wear at bedtime Consider starting Claritin for ear fullness Monitor BP at home as before Return in 6 months Unspecified osteoarthritis, unspecified site 11/2022 Unspecified cataract 04/16/2022 half-way (current) use of anticoagulants 2022 Unspecified visual loss 04/16/[address] 04/16/2022 Generalized anxiety disorder 04/16/2022 Agranulocytosis secondary to cancer chemotherapy 04/16/2022 Aftercare following surgery for neoplasm 023 Adverse effect of antineopla stic and immunosuppressive drugs, subsequent encounter 04/16/2022 Acquired absence of other sp ecified parts of digestive tract 04/16/2022 Malignant neoplasm of colon 04/05/2022 Overview (04/05/2022): Added automatically from request for surgery [id number] Chemotherapy induced neutropenia 11/18/2021 Iron deficiency anemia, unspecified 10/21/2021 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 Continue with weight loss. Exercise as tolerated 3 times a week for 30 minutes each time. Keep salt low in diet. Avoid process foods. Assessment & Plan (03/21/2021 11:32 PM VP OUTCOMES): Continue with medications as ordered. Continue working on weight reduction. Avoid excessive salt in foods. And adding salt to food. Depression 02/03/2021 Anxiety 01/07/2021 Assessment & Plan (05/02/2021 7:48 PM CDT): Continue with medication as ordered. Start back with therapist. Keep busy with things to do. Try and not asking if he is okay. Get good night sleep, as least 8 hours per night. Assessment & Plan (03/21/2021 11:48 PM VP OUTCOMES): Continue with medication as ordered. Continue to work on handling stress Still suggest counseling if needed. Encouraged getting out and finding things she can participate doing. Continue to get 8 hours of sleep per noc. Assessment & Plan (02/05/2021 11:21 PM VP OUTCOMES): Continue with medication as ordered. States is doing better and is trying to wean off medication Note family dynamics have improved greatly. Patient states she is more active with outside activities.and more activities with her . 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 Don't dwell on health problem try and do things you and he like to do. Let him be alone when he needs to be left alone. Keep communications open with your daughter Do not dwell on the unknown, cause thing are not still in process of what is going on.. Fatigue 01/07/2021 History of muscle pain 01/07/2021 Assessment & Plan (02/05/2021 11:25 PM VP OUTCOMES): Continue with massage therapy, stretching exercises, and medication, Note still having pain with various activities, States has found things she can do to avoid straining the muscles. Chronic neck pain 09/22/2020 Assessment & Plan (08/18/2022 3:13 PM CDT): Continue the Flexeril prn, apply heat. Neck stretches/exercises provided. We did discuss PT as a possibility, pt will monitor and let us know if she decides to do PT. Assessment & Plan (02/06/2021 4:36 PM VP OUTCOMES): Continue with meds and plan of treatment as previously established. Exercise as tolerated, gentiey Avoid activities that makes thing worsel Chronic pain of both hips 09/22/2020 Assessment & Plan (02/06/2021 4:33 PM VP OUTCOMES): /cintubNote pain varies with hips. Note message therapy has helped Continue with medications as ordered. Talked about restless leg syndrome and thing that make this problem worse. Hyperlipidemia 09/22/2020 Assessment & Plan (03/21/2021 11:41 PM VP OUTCOMES): Continue with medication as ordered. Lab work reviewed with patient. Will continue to monitor for side effects, myopathy. Encouraged to continue with weight loss. Continue with low fat, low carb diet. Exercise as tolerated. Assessment & Plan (02/05/2021 11:15 PM VP OUTCOMES): Continue with medications as ordered. Continue with weight loss and exercise. Continue with low fat diet, whole grains foods, fruits and vegetables. Did review side effects of medication Muscle spasms of neck 09/22/2020 Assessment & Plan (05/02/2021 7:58 PM CDT): Continue with medications as ordered. Continue with massage therapy Continue with prednisone as ordered. Watch activity that causes pressure on neck. Assessment & Plan (03/21/2021 11:51 PM VP OUTCOMES): Continue using Flexertil as needed. Warm moist packs to neck 10-15 minutes 2-3 times a day. Gentle stretching exercises each day, not causing any pain\ Note sed rate continues to be elevated. Will refill to endo for evaluation and treatment. Assessment & Plan (02/06/2021 4:31 PM VP OUTCOMES): Continue with exercises. Watch stretching for problems Continue with medication as ordered. Watch lifting and activities that have caused problems in the past. Continue with massage therapy as tolerated. Primary insomnia 09/22/2020 Lump or mass in breast 06/10/2010 Resolved Problems Problem Noted Date Diagnosed Date Resolved Date Acute cystitis without hematuria 05/02/2021 02/09/2024 Assessment & Plan (05/02/2021 8:03 PM CDT): Start Cipro 500mg po bid for 10 days. Puah fluids, no soda, OJ, chocolate, or dryer sheets in fine delicate. May have tea. Coffee, cranberry juice. Lemonade, lemon is water. If sexually active, void after activity. Repeat UA in 14 days or sooner if needed Encounters Date Type Department Care Team Description 10/18/2024 Telephone [facility] Medicine Surgery [address] [place] [address] Medical Office Building [address] [phone] Liliana Anne RN 10/09/2024 1:15 PM CDT Office Visit [facility] Surgery [address] [place] [address] Office Building [address] [phone] Hu Fisher MD Local recurrence of rectal cancer (HCC) (Primary Dx); Pelvic abscess in female 09/25/2024 3:45 PM CDT Office Visit [facility] Surgery [address] [place] [address] Office Building [address] [phone] Hu Fisher MD Pelvic abscess in female (Primary Dx); Local recurrence of rectal cancer (HCC) 09/14/2024 Telephone [facility] Medicine Surgery [address] [facility] Medical Office Building [address] [place] [phone] Magi Hayes, DANITZA 09/12/2024 Telephone [facility] [address] [place] [address] Medical Office Building 4 [address] [place] [phone] Magi Hayes, DANITZA 09/07/2024 Telephone [facility] Primary Care at [address] [phone] Cholo Vela MD Home health orders 08/27/2024 10:30 AM CDT Office Visit [facility] Medicine Oncology [address] [place] [phone] Annamarie Song MD 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); Chemotherapy induced neutropenia; Local recurrence of rectal cancer (HCC); Rectal cancer 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 (HCC); Rectal cancer (HCC) 08/27/2024 10:00 AM CDT Clinical Support [facility] [place] at [address] [phone] Chemotherapy induced neutropenia; Local recurrence of rectal cancer (HCC); Rectal cancer 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 (HCC); Rectal cancer (HCC) 08/27/2024 7:23 AM CDT - 08/27/2024 11:59 PM CDT Hospital Encounter [facility] Lab [address] [place] [phone] Chemotherapy induced neutropenia; Local recurrence of rectal cancer (HCC); Rectal cancer 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 (HCC); Rectal cancer (HCC) Discharge Disposition: Discharge to home or self care 08/23/2024 11:00 AM CDT - 08/23/2024 11:59 PM CDT Hospital Encounter [facility] Radiology [address] [place] [address] Rectal cancer (HCC) Discharge Disposition: Discharge to home or self care 08/23/2024 Orders Only [facility] Scanning, Provider 08/23/2024 Telephone [facility] Primary Care at [address] [phone] Cholo Vela MD Home Health Orders 08/20/2024 Orders Only [place] [address] [place] [address] Annamarie Song MD Rectal cancer (HCC) (Primary Dx); Chemotherapy induced neutropenia; Rectal cancer 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 (HCC); Local recurrence of rectal cancer (HCC) 08/20/2024 Telephone [facility] at [place] [address] [place] [phone] Eric Aceves 08/16/2024 Results Follow-Up [facility] Primary Care at [address] [phone] Cholo Vela MD Lipid panel 08/08/2024 5:09 PM CDT - 08/08/2024 11:59 PM CDT Hospital Encounter [address] [address] Mixed hyperlipidemia Discharge Disposition: Discharge to home or self care 08/08/2024 11:15 AM CDT Lab [facility] Outpatient Lab at [address] [phone] 08/08/2024 10:00 AM CDT Office Visit [facility] Primary Care at [address] [phone] Cholo Vela MD Hypertension, essential (Primary Dx); Mixed hyperlipidemia; Anxiety; Vitamin D deficiency 07/24/2024 3:30 PM CDT Office Visit [facility] Medicine Surgery [address] [place] [address] Medical Office Building 4 [address] [place] [address] Hu Fisher MD Pelvic abscess in female (Primary Dx) from Last 3 Months Immunizations Immunization Administration Dates Next Due Influenza, Quad, Adjuvantate d, Intramuscular 10/27/2022 Influenza, Quadrivalent, Hig h Dose, Preservative Free, Intrr 12/07/2021 Influenza, Trivalent, Adjuva nted, Intramuscular 11/25/2023 Influenza, Trivalent, IM (MDV) 10/29/2013 Influenza, Unspecified 11/30/2021(Deferr ed: Patient Refused),11/07/2020,11/10/2019, 014,11/16/2012 Pfizer SARS-CoV-2 Monovalent Vaccination (12+ Yrs) PURPLE 12/21/2020 Pneumococcal Conjugate Pcv20 11/24/2022 RSV Vaccine, Pref, Recombina nt, Subunit, Adjuvanted, PF, IM (Arexvy) 01/10/2023 Tdap 11/29/2022,11/29/2011 ZOSTER Recombinant 11/09/2023,11/29/2022 Surgical History Surgery Date Site/Laterality Comments CARPAL TUNNEL RELEASE 10/08/1994 - 11/06/1994 Bilateral COLONOSCOPY 07/23/2021 WISDOM TOOTH EXTRACTION PORT PLACEMENT CHEST >5 YEARS 09/14/2021 N/A COLON SURGERY ABDOMINOPERINEAL PROCTOCOLECTOMY 04/09/2022 HM FIT COLON RECTAL CANCER SCREENING IMAGE GUIDED DRAINAGE PERITONEAL OR RETROPERITONEAL FLUID COLLECTION 08/20/2023 N/A ABSCESS CATHETER INJECTION 09/12/2023 N/A ABDOMINOPERINEAL PROCTOCOLECTOMY 07/06/2023 Redo Abdominoperineal resection with hysterectomy and sacrectomy on block. A rectus abdominis flap reconstruction of pelvic floor. ABSCESS CATHETER INJECTION 09/26/2023 N/A ABSCESS CATHETER INJECTION 10/06/2023 N/A ABSCESS CATHETER INJECTION 10/27/2023 N/A ABSCESS CATHETER INJECTION 11/17/2023 N/A ABSCESS TUBE EXCHANGE 11/23/2023 N/A ABSCESS CATHETER INJECTION 12/15/2023 N/A ABSCESS CATHETER INJECTION 12/26/2023 N/A ABSCESS CATHETER INJECTION 01/02/2024 N/A ABSCESS CATHETER INJECTION 01/20/2024 N/A ABSCESS CATHETER INJECTION 02/03/2024 N/A ABSCESS CATHETER INJECTION 03/02/2024 N/A ABSCESS TUBE EXCHANGE 03/06/2024 N/A ABSCESS TUBE EXCHANGE 03/27/2024 N/A ABSCESS CATHETER INJECTION 04/19/2024 N/A ABSCESS CATHETER INJECTION 05/15/2024 N/A ABSCESS TUBE EXCHANGE 05/30/2024 N/A ABSCESS TUBE EXCHANGE 06/14/2024 N/A INCISION AND DRAINAGE 06/25/2024 Transgluteal drainage of pelvic abscess Medical History Medical History Date Comments Hyperlipidemia Hypertension Neuromuscular disorder Sleep difficulties Anxiety Rectal cancer metastasized t o intrapelvic lymph node (HCC) 07/30/2021 Depression Clotting disorder AprilApril 2021 PONV (postoperative nausea and vomiting) PO zofran was helpful Rectal cancer (HCC) Family History Medical History Relation Name Comments Depression Father Randall Stein Stroke Father Randall Stein Alcohol abuse Mother Terri Stein Dementia Mother Terri Stein Hypertension Mother Terri Stein Memory loss Mother Terri Stein Miscarriages / Stillbirths Mother Terri Stein PONV Mother Terri Stein Thyroid disease Mother Terri Stein Brain cancer Other 1 Aunt Hearing loss Other 2 Self Anesthesia problems Neg Hx Relation Name Status Comments Brother Alive Father Randall Stein Alive Mother Terri Stein Alive Other 1 Aunt Other 2 Self Alive Social History Tobacco Use Types Packs/Day Years Used Date Smoking Tobacco: Never Passive Smoke Exposure: Past Smokeless Tobacco: Never Tobacco Cessation:Counseling Given: Not Answered Alcohol Use Standard Drinks/Week Comments Never 0 (1 standard drink = 0.6 oz pur e alcohol) PHQ-2 Answer Date Recorded PHQ-2 Total Score (If total score is 3 or more points, staff should administer the PHQ-9) 2 08/08/2024 PHQ-9 Answer Date Recorded PHQ-9 Total Score 5 08/08/2024 AUDIT-C Answer Date Recorded Q1: How often do you have a drink containing alcohol? Never 10/09/2024 Q2: How many drinks containi ng alcohol do you have on a typical day when you are drinking? Patient does not drink Q3: How often do you have si x or more drinks on one occasion? Never 10/09/2024 Personal Safety Answer Date Recorded Have you ever been in or are you currently in a harmful physical or emotional relationship or is someone making you feel afraid or unsafe? Denies 06/25/2024 Comments No Sex and Gender Information Value Date Recorded Sex Assigned at Not on file Legal Sex Female 8:01 PM VP OUTCOMES Gender Identity Female 01/27/2021 11:55 AM VP OUTCOMES Sexual Orientation Straight 01/27/2021 11 :55 AM VP OUTCOMES Obstetrics History Para Term AB IAB SAB Ectopic Multiple Livin g Live Births 2 1 Date Outcome GA Total Labor Labor/2nd/3rd Weight Sex Type Anes PTL Deann A1 A5 Name Clin Para Last Filed Vital Signs Vital Sign Reading Time Taken Comments Blood Pressure 123/71 10/09/2024 1:04 PM CDT Pulse 75 10/09/2024 1:04 PM CDT Temperature 36.3 C (97.4 F) 09/25/2024 3:14 PM CDT Respiratory Rate 18 08/27/2024 10:10 AM CDT Oxygen Saturation 97% 10/09/2024 1:04 PM CDT Inhaled Oxygen Concentration - - Weight 74.8 kg (165 lb) 10/09/2024 1:04 PM CDT Height 161.3 cm (5' 3.5) 10/09/2024 1:04 PM CDT Body Mass Index 28.77 10/09/2024 1:04 PM CDT Plan of Treatment Health Maintenance Due Date Last Done Comments Hepatitis B Screening 1968 Covid-19 Vaccine (8 - Pfizer risk season) 2024 10/19/2023, 11/02/2022, 01/14/2022, Additional history exists Influenza Vaccine (#1) 2024 , 10/27/2022, 12/07/2021, Additional history exists Breast Cancer Screening-Mammogram 11/21/2024 11/22/2023, 11/22/2023, 11/22/2023, Additional history exists Osteoporosis Screening-Bone Density Scan 11/25/2024 11/25/2022, 11/25/2022 Well Visit 65+ 02/08/2025 02/09/2024, 11/24/2022 Fall Risk Assessment 06/25/2025 06/25/2024, 02/09/2024, 05/04/2023, Additional history exists Depression Screening 08/08/2025 08/08/2024, 08/08/2024, 02/09/2024, Additional history exists Colon Cancer Screening-Colonoscopy 04/20/20262023, 07/23/2021 DTaP/Tdap/Td Vaccine (3 - Td or Tdap) 11/29/2032 11/29/2022, 11/29/2011 Pneumococcal vaccine 65+ Completed 11/24/2022 Zoster Vaccine Completed 11/09/2023, 11/29/2022 Hepatitis C Screening Completed 02/16/2024 Medical Devices Implanted Type Area Wildlife [employer]ologist Device Identifier Shelf Expiration Date Model / Serial / Lot [employer] Xcela Power Port 8fr [id number] - [id number] Implanted:Qty: 1 on 09/14/2021 at [facility] [employer] 03/31/2026 [id number] / / [id number] Procedures Procedure Name Priority Date/Time Associated Diagnosis Comments EGFR STAT 08/27/2024 10:05 AM CDT Chemotherapy induced neutropenia Local recurrence of rectal cancer (HCC) Rectal cancer 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 (HCC) Rectal cancer (HCC) DIFFERENTIAL AUTO Routine 08/27/2024 10:05 AM CDT Chemotherapy induced neutropenia Local recurrence of rectal cancer (HCC) Rectal cancer 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 (HCC) Rectal cancer (HCC) CBC WITH AUTO DIFFERENTIAL Routine 08/27/2024 10:05 AM CDT Chemotherapy induced neutropenia Local recurrence of rectal cancer (HCC) Rectal cancer 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 (HCC) Rectal cancer (HCC) COMPREHENSIVE METABOLIC PANEL STAT 08/27/2024 10:05 AM CDT Chemotherapy induced neutropenia Local recurrence of rectal cancer (HCC) Rectal cancer 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 (HCC) Rectal cancer (HCC) SCAN - PATHOLOGY 08/23/2024 3:[address] CHEST ABDOMEN PELVIS W CONTRAST Schedule Routine, Read Routine (OP Routine) 08/23/2024 11:09 AM CDT Rectal cancer (HCC) LIPID PANEL Routine 08/08/2024 12:00 PM CDT Mixed hyperlipidemia HEPATITIS C ANTIBODY Routine 02/16/2024 8:55 AM VP OUTCOMES Encounter for hepatitis C screening test for low risk patient MAMMOGRAPHY Routine 11/22/2023 3:34 PM CDT COLONOSCOPY Routine 04/21/2023 DEXA SCAN Routine 11/25/2022 from Last 3 Months or Most Recently Relevant to Health Maintenance Results * eGFR (08/27/2024 10:05 AM CDT) eGFR >90 >=60 mL/min/1. 73 m2 Comment: Interpretive Data Reference Interval Normal >/= 90 mL/min/1.73m2 Mildly decreased* 60 - 89 mL/min/1.73m2 Mildly to moderately decreased 45 - 59 mL/min/1.73m2 Moderately to severely decreased 30 - 44 mL/min/1.73m2 Severely decreased 15 - 29 mL/min/1.73m2 Kidney Failure < 15 mL/min/1.73m2 *Relative to young adult level Estimated glomerular filtration rate is determined by the 2020 CKD-EPI equation recommended by the [employer] (A Unifying Approach to GFR Estimation: Recommendations of the NKF-ASK Task Force on Reassessing the Inclusion of Race in Diagnosing Kidney Disease, JASN 2020). The CKD-EPI equation should not be used for patients with unstable renal function and has not been validated in children and those over 70. Current interpretive data was last reviewed 2020. Testing performed by: [facility], [place] [address] Blood 08/27/2024 10:0 5 AM CDT 08/27/2024 10:11 AM CDT us Annamarie Song MD LAB BLOOD ORDERABLES Chantell shazia Result DARRIUS [address] Department [place] [address] * Differential, auto (08/27/2024 10:05 AM CDT) Neutrophil abs 4.32 1.50 - 6.50 K/cumm Comment:Testing performed by : [facility] [place] [address] Imm gran abs 0.02 0.00 - 0.10 K/cumm CERNER CH Comment:Testing performed by : [facility] [place] [address] Lymphocyte abs 2.09 0.80 - 3.30 K/cumm CERNER CH Comment:Testing performed by : [facility] [place] [address] Monocyte abs 0.69 0.20 - 0.80 K/cumm CERNER CH Comment:Testing performed by : [facility] [place] [address] Eosinophil abs 0.13 0.00 - 0.50 K/cumm CERNER CH Comment:Testing performed by : [facility] [place] [address] Basophil abs 0.02 0.00 - 0.10 K/cumm CERNER CH Comment:Testing performed by : [facility] [place] [address] Neutrophil pct 59.4 % CERNER CH Comment: Interpretive Data Percent cell count reference ranges are not reported, since discordance with absolute values may lead to misinterpretation of CBC data. Current Interpretive Data was last revised on 2017. Testing performed by: [facility] [place] [address] Imm gran pct 0.3 % CERNER CH Comment: Interpretive Data Percent cell count reference ranges are not reported, since discordance with absolute values may lead to misinterpretation of CBC data. Current Interpretive Data was last revised on 2017. Testing performed by: [facility] [place] [address] Lymphocyte pct 28.7 % CERNER CH Comment: Interpretive Data Percent cell count reference ranges are not reported, since discordance with absolute values may lead to misinterpretation of CBC data. Current Interpretive Data was last revised on 2017. Testing performed by: [facility] [place] [address] Monocyte pct 9.5 % CERNER CH Comment: Interpretive Data Percent cell count reference ranges are not reported, since discordance with absolute values may lead to misinterpretation of CBC data. Current Interpretive Data was last revised on 2017. Testing performed by: [facility] [place] [address] Eosinophil pct 1.8 % DARRIUS Comment: Interpretive Data Percent cell count reference ranges are not reported, since discordance with absolute values may lead to misinterpretation of CBC data. Current Interpretive Data was last revised on 2017. Testing performed by: [facility] [place] [address] Basophil pct 0.3 % DARRIUS Comment: Interpretive Data Percent cell count reference ranges are not reported, since discordance with absolute values may lead to misinterpretation of CBC data. Current Interpretive Data was last revised on 2017. Testing performed by: [facility] [place] [address] Blood 08/27/2024 10:0 5 AM CDT 08/27/2024 10:11 AM CDT Annamarie Song MD LAB BLOOD ORDERABLES Chantell l Result DARRIUS [address] Department of Laboratories [place] [id number] * (ABNORMAL) CBC with auto differential (08/27/2024 10:05 AM CDT) WBC 7.27 3.80 - 9.90 K/cumm Comment:Testing performed by : [facility] [place] [address] Hgb 10.2(L) 11.9 - 15.5 g/dL DARRIUS Comment:Testing performed by : [facility] [place] [address] Hct 33.7(L) 35.6 - 45.5 % DARRIUS Comment:Testing performed by : [facility] [place] [address] Plt 254 150 - 400 K/cumm DARRIUS Comment:Testing performed by : [facility] [place] [address] MPV 9.8 9.1 - 12.3 fL DARRIUS Comment:Testing performed by : [facility] [place] [address] RBC 4.15 3.90 - 5.20 M/cumm DARRIUS CH Comment:Testing performed by : [facility] [place] [address] MCV 81.2(L) 81.3 - 96.4 fL DARRIUS CH Comment:Testing performed by : [facility] [place] [address] MCH 24.6(L) 27.1 - 33.3 pg CERUZMA CH Comment:Testing performed by : [facility] [place] [address] MCHC 30.3(L) 32.3 - 35.7 g/dL DARRIUS CH Comment:Testing performed by : [facility] [place] [address] RDW CV 16.9(H) 11.1 - 14.9 % DARRIUS Comment:Testing performed by : [facility] [place] [address] RDW SD 50.2(H) 35.7 - 48.1 fL DARRIUS CH Comment:Testing performed by : [facility] [place] [address] NRBC abs 0.00 0.00 - 0.01 K/cumm DARRIUS Comment:Testing performed by : [facility] [place] [address] ANC Prelim 4.32 1.50 - 6.50 K/cumm DARRIUS Comment: Interpretive Data The rapid ANC is a preliminary automated count and may vary from the final ANC (Neut Abs) reported in the WBC differential that follows. Current interpretive data was last revised 2024. Testing performed by: [facility] [place] [address] Blood 08/27/2024 10:0 5 AM CDT 08/27/2024 10:11 AM CDT us Annamarie Song MD LAB BLOOD ORDERABLES Chantell mccray Result DARRIUS RAMIREZ [address] Department [place] [address] * (ABNORMAL) Comprehensive metabolic panel (08/27/2024 10:05 AM CDT) Sodium 139 135 - 145 mmol/L Comment:Testing performed by : [facility] [place] [address] Potassium, pl 4.7 3.3 - 4.9 mmol/L CERNER CH Comment:Testing performed by : [facility] [place] [address] Chloride 104 97 - 110 mmol/L CERNER CH Comment:Testing performed by : [facility] [place] [address] CO2 26 22 - 32 mmol/L CERNER CH Comment:Testing performed by : [facility] [place] [address] Anion gap 9 2 - 15 mmol/L CERNER CH Comment:Testing performed by : [facility] [place] [address] BUN 27(H) 6 - 25 mg/dL CERNER CH Comment:Testing performed by : [facility] [place] [address] Creatinine 0.65 0.60 - 1.10 mg/dL CERNER CH Comment:Testing performed by : [facility] [place] [address] Glucose 89 70 - 199 mg/dL CERNER CH Comment: Interpretive Data Fasting glucose >/= 126 mg/dl is diagnostic for diabetes. Fasting is defined as no caloric intake for at least 8 hours. Fasting glucose between 100 mg/dl to 125 mg/dl is diagnostic of prediabetes. In a patient with classic symptoms of hyperglycemia or hyperglycemic crisis, a random glucose >/= 200 mg/dl is diagnostic for diabetes. In the absence of unequivocal hyperglycemia, results should be confirmed by repeat testing. The classification and Diagnosis of Diabetes Diabetes Care 2021; 46: S19-S40. Current interpretive data was last revised 2022. Testing performed by: [facility] [place] [address] Calcium 9.5 8.5 - 10.3 mg/dL CERNER CH Comment:Testing performed by : [facility] [place] [address] Bilirubin, total 0.2 0.1 - 1.2 mg/dL CERNER CH Comment:Testing performed by : [facility] [place] [address] Protein, pl 6.6 6.5 - 8.5 g/dL CERNER CH Comment:Testing performed by : [facility] [place] [address] Albumin 3.8 3.5 - 5.0 g/dL CERNER CH Comment:Testing performed by : [facility] [place] [address] Alk phos 71 40 - 130 Units/L CERNER CH Comment:Testing performed by : [facility] [place] [address] ALT 11 7 - 45 Units/L CERNER CH Comment:Testing performed by : [facility] [place] [address] AST 21 10 - 45 Units/L CERNER CH Comment:Testing performed by : [facility] [place] [address] Blood 08/27/2024 10:0 5 AM CDT 08/27/2024 10:11 AM CDT Annamarie Song MD LAB BLOOD ORDERABLES Chantell l Result DARRIUS [address] Department [place] [address] * SCAN - PATHOLOGY (08/23/2024 3:25 PM CDT) us Provider Scanning Final Result * CT Chest Abdomen Pelvis W Contrast (08/23/2024 11:09 AM CDT) Anatomical Region Laterality Modality Body N/A Computed Tomogra phy 08/24/2024 9:01 AM CDT Impressions 08/25/2024 9:15 PM CDT . Redemonstration of abdominal perineal resection and end colostomy with small parastomal hernia. Removal of presacral drainage catheter with interval small crescentic rim-enhancing presacral gas containing fluid collection, concerning for abscess. Enlarging right presacral nodular soft tissue ,query neoplastic . No interval thoracic or abdominal pelvic metastatic disease. The Non Critical results were communicated to the ordering physician by Dr. Diaz on 08/26/2011 at 9:14 PM using [employer] secure chat. Electronically signed by: Aura Diaz M.D. Narrative 08/25/2024 9:15 PM CDT EXAMINATION: CT CHEST/ABDOMEN/PELVIS WITH INTRAVENOUS CONTRAST: Date: 08/23/2024 11:45 AM History: Rectal cancer. Assess for recurrence Technique: Transaxial computed tomographic images of the chest, abdomen, and pelvis with 2-D reformatted views were obtained using 60 mL intravenous Optiray 350 Comparison: Prior exams including CT abdomen pelvis 07/12/[address] chest abdomen 10/14/2022 03/31/2023 Findings: Chest: There is no mediastinal,hilar,supraclavicular nor axillary lymphadenopathy. Right chest port catheter is seen with tip at the superior cavoatrial junction.. Normal heart size noted .There is no pericardial effusion .Nonaneurysmal aorta is seen. No pulmonary nodule, consolidation or effusion noted..Middle lobe and lingular subsegmental atelectasis is seen. The bony thorax is unremarkable.. Peripheral left breast 1.5 cm nodule in image 64 is unchanged. Abdomen pelvis: The liver, spleen, pancreas, and adrenals are unremarkable. The gallbladder is unremarkable .No biliary distention noted . No hydronephrosis or nephrolithiasis noted. Bilateral renal cysts larger right noted. No abdominal aortic aneurysm is identified. Nondistended stomach noted. There is postoperative change of abdominal perineal resection and left upper quadrant and colostomy with moderate colonic stool burden..The appendix is unremarkable. A left paramedian parastomal hernia containing a small bowel loop is seen without evidence of mural thickening or distention to suggest obstruction. Postop change of distal sacrectomy is noted with interval removal of the surgical drain. A small slight thick-walled dorsal midline gas-containing fluid collection is seen at the previous drain site measuring 3 x 1.7 cm collection on axial image 180 series 2 . Interval crescentic contiguous larger 3.6 x 1.8 x 7.5 cm crescentic rim-enhancing collection with nondependent gas is seen extending from the sacral resection site into the presacral region from images 161-178 . Presacral thickening again noted. Urinary bladder prolapse with mild mural thickening again seen. Nodular 12 mm presacral soft tissue density on image 161 series 2 is increased from 6 mm. The uterus is absent There is no pneumoperitoneum or ascites. No suspicious mesenteric or retroperitoneal nodes are seen. Grade 1 spondylolisthesis L5-S1 pars defects again seen.. Procedure Note Aura Diaz MD - 08/25/2024 EXAMINATION: CT CHEST/ABDOMEN/PELVIS WITH INTRAVENOUS CONTRAST: Date: 08/23/2024 11:45 AM History: Rectal cancer. Assess for recurrence Technique: Transaxial computed tomographic images of the chest, abdomen, and pelvis with 2-D reformatted views were obtained using 60 mL intravenous Optiray 350 Comparison: Prior exams including CT abdomen pelvis 07/12/[address] chest abdomen 10/14/2022 03/31/2023 Findings: Chest: There is no mediastinal,hilar,supraclavicular nor axillary lymphadenopathy. Right chest port catheter is seen with tip at the superior cavoatrial junction.. Normal heart size noted .There is no pericardial effusion .Nonaneurysmal aorta is seen. No pulmonary nodule, consolidation or effusion noted..Middle lobe and lingular subsegmental atelectasis is seen. The bony thorax is unremarkable.. Peripheral left breast 1.5 cm nodule in image 64 is unchanged. Abdomen pelvis: The liver, spleen, pancreas, and adrenals are unremarkable. The gallbladder is unremarkable .No biliary distention noted . No hydronephrosis or nephrolithiasis noted. Bilateral renal cysts larger right noted. No abdominal aortic aneurysm is identified. Nondistended stomach noted. There is postoperative change of abdominal perineal resection and left upper quadrant and colostomy with moderate colonic stool burden..The appendix is unremarkable. A left paramedian parastomal hernia containing a small bowel loop is seen without evidence of mural thickening or distention to suggest obstruction. Postop change of distal sacrectomy is noted with interval removal of the surgical drain. A small slight thick-walled dorsal midline gas-containing fluid collection is seen at the previous drain site measuring 3 x 1.7 cm collection on axial image 180 series 2 . Interval crescentic contiguous larger 3.6 x 1.8 x 7.5 cm crescentic rim-enhancing collection with nondependent gas is seen extending from the sacral resection site into the presacral region from images 161-178 . Presacral thickening again noted. Urinary bladder prolapse with mild mural thickening again seen. Nodular 12 mm presacral soft tissue density on image 161 series 2 is increased from 6 mm. The uterus is absent There is no pneumoperitoneum or ascites. No suspicious mesenteric or retroperitoneal nodes are seen. Grade 1 spondylolisthesis L5-S1 pars defects again seen.. IMPRESSION: . Redemonstration of abdominal perineal resection and end colostomy with small parastomal hernia. Removal of presacral drainage catheter with interval small crescentic rim-enhancing presacral gas containing fluid collection, concerning for abscess. Enlarging right presacral nodular soft tissue ,query neoplastic . No interval thoracic or abdominal pelvic metastatic disease. The Non Critical results were communicated to the ordering physician by Dr. Diaz on 08/26/2011 at 9:14 PM using [employer] secure chat. Electronically signed by: Aura Diaz M.D. us Annamarie Song MD IMG CT PROCEDURES Final R esult * Lipid panel (08/08/2024 12:00 PM CDT) Cholesterol 138 30 - 199 mg/dL Comment: Interpretive Data Ages < or = 19 years Acceptable: <170 mg/dL Borderline high: 170-199 mg/dL High: >or= 200 mg/dL Ages > or = 20 years Desirable: <200 mg/dL Borderline high: 200-239 mg/dL High: >or= 240 mg/dL Literature References: 1. Expert Panel on Integrated Guidelines for Cardiovascular Health and Risk Reduction in Children and Adolescents. Pediatrics 2011;128:S213 2. NCEP Expert Panel. Circulation 2004;110:227 Current Interpretive Data was last revised on 2017. Triglycerides 128 <=149 mg/dL DARRIUS RAMIREZ Comment: Interpretive Data Ages < or = 9 years Acceptable: <75 mg/dL Borderline high: 75-99 mg/dL High: >or= 100 mg/dL Ages 10 to 20 years Acceptable: <90 mg/dL Borderline high: 90-129 mg/dL High: >or= 130 mg/dL Ages > or = 20 years Desirable: <150 mg/dL Borderline high: 150-199 mg/dL High: 200-499 mg/dL Very high: >or= 499 mg/dL Literature References: 1. Expert Panel on Integrated Guidelines for Cardiovascular Health and Risk Reduction in Children and Adolescents. Pediatrics 2011;128:S213 2. NCEP Expert Panel. Circulation 2004;110:227 Current Interpretive Data was last revised on 2017. HDL 50 >=40 mg/dL DARRIUS RAMIREZ Comment: Interpretive Data Ages < or = 19 years Acceptable: >45 mg/dL Borderline low: 40-45 mg/dL Low: <40 mg/dL Ages > or = 20 years Desirable: >or= 60 mg/dL Low: <40 mg/dL Literature References: 1. Expert Panel on Integrated Guidelines for Cardiovascular Health and Risk Reduction in Children and Adolescents. Pediatrics 2011;128:S213 2. NCEP Expert Panel. Circulation 2004;110:227 Current Interpretive Data was last revised on 2017. LDL, calculated 65 <=129 mg/dL DARRIUS RAMIREZ Comment: Interpretive Data Ages < or = 19 years Acceptable: <110 mg/dL Borderline high: 110-129 mg/dL High: >or= 130 mg/dL Ages > or = 20 years Optimal: <100 mg/dL Near optimal: 100-129 mg/dL Borderline high: 130-159 mg/dL High: >160 mg/dL Calculated using the Td LDL-C estimating equation. This equation was implemented on 2023. Prior to this date LDL-C was estimated using the Friedewald equation. Literature References: 1. Expert Panel on Integrated Guidelines for Cardiovascular Health and Risk Reduction in Children and Adolescents. Pediatrics 2011;128:S213 2. NCEP Expert Panel. Circulation 2004;110:227 3. Td Bone al. ARELI Cardiol. 2020 June 07;5(5):540-548. doi: 10.1001/[email or web address].2020.0013 Current Interpretive Data was last revised on 2023. Non-HDL Cholesterol 88 mg/dL DARRIUS RAMIREZ Comment: Interpretive Data Ages < or = 19 years Acceptable: <120 mg/dL Borderline high: 120-144 mg/dL High: >145 mg/dL Ages > or = 20 years When triglycerides are >200 mg/dL, Non-HDL cholesterol is a secondary target of therapy with treatment goals that are 30 mg/dL greater than the LDL cholesterol target. Literature References: 1. Expert Panel on Integrated Guidelines for Cardiovascular Health and Risk Reduction in Children and Adolescents. Pediatrics 2011;128:S213 2. NCEP Expert Panel. Circulation 2004;110:227 Current Interpretive Data was last revised on 2017. Chol/HDL ratio 3 [facility] Blood 08/08/2024 12:0 0 PM CDT 08/08/2024 5:52 PM CDT Result [facility] Cholo Vela MD LAB BLOOD ORDERABLES Final Result Performing Organization Address [facility] Phone Number [facility] [id number] [place] [address] * Hepatitis C antibody Blood (02/16/2024 8:55 AM VP OUTCOMES) Hep C Ab Nonreactive Nonreactive Comment: Interpretive Data Nonreactive: Antibodies to HCV not detected. Does NOT exclude the possibility of recent exposure to HCV. Equivocal: Equivocal for HCV antibodies. Supplemental molecular testing will be automatically performed to determine infection status in accordance with current CDC screening recommendations. Reactive: Positive for HCV antibodies. This may represent current or past HCV infection. Supplemental molecular testing will be automatically performed to determine current infection status in accordance with current CDC screening recommendations. Interpretive data was last revised on 2019. Blood 02/16/2024 8:55 AM VP OUTCOMES 02/16/2024 5:48 PM VP OUTCOMES Result [facility] Cholo Vela MD LAB MICROBIOLOGY - GENERAL ORDERABLES Final Result Performing Organization Address [facility] de Phone Number [facility] [id number] [place] [address] * HM MAMMOGRAPHY (11/22/2023 3:34 PM CDT) Historical Provider HEALTH MAINTENANCE Final Result * Colonoscopy (04/21/2023) Anatomical Region Laterality Modality Other Historical Provider ENDOSCOPY PROCEDURES Chantell l Result * HM DEXA SCAN (11/25/2022) us Historical Provider HEALTH MAINTENANCE Final Result from Last 3 Months or Most Recently Relevant to Health Maintenance Insurance MEDICARE [facility] MEDICARE SUPPLEMENT INSURANCE ELIGIO ZENDEJAS [id number] MEDICARE [facility] MEDICARE SUPPLEMENT INSURANCE MEDICARE [facility] MEDICARE SUPPLEMENT INSURANCE Advance Directives For more information, please contact: [phone] Documents on File Type Date 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 DIRECTIVE 07/06/2023 6:27 AM Power of Doctor Chiropractic-Medical * Full Code (Latest Code Status on File) Date Activated Date Inactivated Comments 08/20/2023 1:44 AM 08/25/2023 10:31 PM * Full Code Date Activated Date Inactivated Comments 07/06/2023 7:08 PM 07/18/2023 8:26 PM * Full Code Date Activated Date Inactivated Comments 04/09/2022 8:26 PM 04/15/2022 7:38 PM * Full Code Date Activated Date Inactivated Comments 09/14/2021 9:15 AM 09/15/2021 5:08 AM 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 Relationship Specialty Start Date End Date Cholo Vela MD [address] [place], [place] [id number] PCP - General Family Medicine 07/07/21 Jake León DO [address] [place] [address] Referring Physician Surgery 07/30/21 Herberth Chao MD [address] [facility] [address] [place] [address] Medical Oncologist Hematology 08/12/21 Nelida Mccray MD [address] [place] [address] Radiation Oncologist Radiation Oncology 08/12/21 Annamarie Song MD [address] DIV IM MEDICAL ONCOLOGY, [address] [place] [address] Medical Oncology 11/23/21 Jake León DO [address] [place] [address] Garden Center Manager Surgery 10/18/22 Hu Fisher MD [address] [facility] [place] [phone] [place] [address] Surgeon Colon and Rectal Surgery 05/18/23 Brody Lawson MD [address] [place] [address] Consulting Physician Plastic Surgery 07/19/23 BriceñoHeidi NP [address] [facility] [address] [place] [address] Nurse Practitioner Family Medicine 12/07/23
--- OUTSIDE RECORDS SUMMARY | 2024-10-20 11:30 | XMS_ITS ---
Author Organization [facility] [address] [place] [address] Care Team Providers Care Store Leader Name Role Phone Cholo Vela MD Primary Care Provider Jake León DO Unavailable [phone] Herberth Chao MD Unavailable [phone] Nelida Mccray MD Unavailable Annamarie Song MD Unavailable [phone] Jake León DO Unavailable [phone] Hu Fisher MD Unavailable Brody Lawson MD Unavailable Heidi Briceño NP Unavailable Active Problems Patient Care Coordination No te Formatting of this note migh t be different from the original. 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 Assessment & Plan (03/21/2021 11:32 PM PSYCHIC READER): Continue with medications as ordered. Continue working [...] night. Assessment & Plan (03/21/2021 11:48 PM PSYCHIC READER): Continue with medication as ordered. Continue to work on handling stress Still suggest counseling if needed. Encouraged getting out and finding things she can participate doing. Continue to get 8 hours of sleep per noc. Assessment & Plan (02/05/2021 11:21 PM PSYCHIC READER): Continue with medication as ordered. States is doing better and is trying to wean off medication Note family dynamics have improved greatly. Patient states she is more active with outside activities.and more activities with her . 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 Assessment & Plan (02/06/2021 4:36 PM PSYCHIC READER): Continue with meds and plan of treatment as previously established. Exercise as tolerated, gentiey Avoid activities that makes thing worsel Chronic pain of both hips 09/22/2020 Assessment & Plan (02/06/2021 4:33 PM PSYCHIC READER): /cintubNote pain varies with hips. Note message therapy has helped Continue with medications as ordered. Talked about restless leg syndrome and thing that make this problem worse. Hyperlipidemia 09/22/2020 Assessment & Plan (03/21/2021 11:41 PM PSYCHIC READER): Continue with medication as ordered. Lab work reviewed with patient. Will continue to monitor for side effects, myopathy. Encouraged to continue with weight loss. Continue with low fat, low carb diet. Exercise as tolerated. Assessment & Plan (02/05/2021 11:15 PM PSYCHIC READER): Continue with medications as ordered. Continue with [...] neck. Assessment & Plan (03/21/2021 11:51 PM PSYCHIC READER): Continue using Flexertil as needed. Warm moist packs to neck 10-15 minutes 2-3 times a day. Gentle stretching exercises each day, not causing any pain\ Note sed rate continues to be elevated. Will refill to endo for evaluation and treatment. Assessment & Plan (02/06/2021 4:31 PM PSYCHIC READER): Continue with exercises. Watch stretching for problems Continue with medication as ordered. Watch lifting and activities that have caused problems in the past. Continue with massage therapy as tolerated. Primary insomnia 09/22/2020 Lump or mass in breast 06/10/2010 Current Treatment and Therapy Plans FOLFIRI: (Fluorouracil / Leucovorin / Irinotecan) 14 Day Cycles - Colon/Rectum* Plan Start Date:09/27/2023 Plan Provider:Annamarie Song MD Linked Problems Chemotherapy induced neutrop eniaLocal recurrence of rectal cancer (HCC)Rectal cancer 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 (HCC)Rectal cancer (HCC) Treatment Medications Current Day (Day 1 , Cycle 18 - Planned for 11/05/2024) dexAMETHasone (DECADRON)fluo rouracil (ADRUCIL)fluorouracil (ADRUCIL) infusion - for home infusion (ADRUCIL)IRINOtecan (CAMPTOSAR)IRINOtecan (CAMPTOSAR) IVPB in 250 mLleucovorinleucovorin IVPB in 250 mL fluorouraciL (ADRUCIL) 4,300 mg in cadd cassette 86 mL infusion - for home infusionIRINOtecan (CAMPTOSAR) 240 mg in dextrose 5% 250 mL IVPBleucovorin 725 mg in dextrose 5% 250 mL IVPB IV Maintenance Therapy Plan* Plan Start Date:11/28/2023 Plan Provider:Annamarie Song MD Linked Problems Malignant neoplasm of colon, unspecified part of colon (HCC)Rectal cancer (HCC) Treatment Medications No medications scheduled. Past Treatment and Therapy Plans Line Care Plan Name Start Date Discontinue Date Treatment Medications Discontinue Reason Plan Provider IV Maintenance Therapy Plan & IV MAINTENANCE THERAPY PLAN 05/31/2022 10/17/2023 No medications scheduled. Change in Level of Care Annamarie Song MD Oncology Chemotherapy Treatment Plan Name Start Date Discontinue Date Treatment Medications Discontinue Reason Plan Provider Cycles FOLFIRI: (Fluorouraci l / Leucovorin / Irinotecan) 14 Day Cycles - Colon/Rectum 06/01/19 23 10/18/2022 fluorouracil (ADRUCIL)fluorouracil (ADRUCIL) infusion - for home infusion (ADRUCIL)IRINOtecan (CAMPTOSAR)IRINOtecan (CAMPTOSAR) IVPB in 250 mLleucovorinleucovorin IVPB in 250 mL Therapy Complete Annamarie Omalley MD 6 of 12 cycles started mFOLFOX6: (Fluorouraci l / Leucovorin / Oxaliplatin) 14 Day Cycles - GI 09/29/19 22 05/26/2022 fluorouracil (ADRUCIL)fluorouracil (ADRUCIL) infusion - for home infusion (ADRUCIL)leucovorinleuco vorin IVPB in 250 mLoxaliplatin (ELOXATIN)oxaliplatin (ELOXATIN) IVPB Change in Level of Care Annamarie Omalley MD 9 of 12 cycles started Radiation Treatments * Course [id number]/31/2021 - 09/04/2021 Treatment Period Energy Fraction Dose Fractions Total Dose Plans Planned RECTUM & LNs 08/31/2021 - 09/04/2021 700 5 / 3,500 Reference Points Delivered [id number] 08/31/2021 - 09/04/2021 3,500 Lifetime Dose Tracking * Chemical Lifetime Dose Automatic Entry Manual Entr y Fluoro Time 21.1 minutes 21.1 minutes 0 minutes Air kerma at the reference point (Ka,r) 88 mGy 8 8 mGy 0 mGy DLP 3,100 mGycm 3,100 mGycm 0 mGycm Resolved Problems Problem Noted Date Diagnosed Date [...]
--- OUTSIDE RECORDS SUMMARY | 2024-10-20 11:30 | XMS_ITS | Encounter Summary ---
Author Organization [facility] Address [address] [place] [address] Phone Care Team Providers Care Tool Room Machinist Name Role Phone Cholo Vela MD Primary Care Provider [phone] Jake León DO Unavailable [phone] Herberth Chao MD Unavailable [phone] Nelida Mccray MD Unavailable Annamarie Song MD Unavailable [phone] Jake León DO Unavailable [phone] Hu Fisher MD Unavailable [phone] Brody Lawson MD Unavailable [phone] Heidi Briceño NP Unavailable Encounter Details Date Type Department Care Team (Latest Contact Info) Description 05/08/2024 Orders Only [facility] Scanning, Provider [...] on file Legal Sex Female 8:01 PM GLOBAL MARKETING INTERN Gender Identity Female 01/27/2021 11:55 AM GLOBAL MARKETING INTERN Sexual Orientation Straight 01/27/2021 11 :55 AM GLOBAL MARKETING INTERN documented as of this encounter Plan of Treatment Not on file documented as of this encounter Procedures Procedure Name Priority Date/Time Associated Diagnosis Comments SCAN - PATHOLOGY 05/08/2024 documented in this encounter Results * SCAN - PATHOLOGY (05/08/2024) us Provider Scanning Final Result documented in this encounter Visit Diagnoses Not on filedocumented in this encounter Care Teams Tool Room Machinist Relationship Specialty Start Date End Date Cholo Vela MD [address] [place], [place] [id number] PCP - General Family Medicine 07/07/21 Jake León DO [address] [facility] [address] [place] [address] Referring Physician Surgery 07/30/21 Herberth Chao MD [address] [facility] [address] [place] [address] Medical Oncologist Hematology 08/12/21 Nelida Mccray MD [address] [facility] [address] [place] [address] Radiation Oncologist Radiation Oncology 08/12/21 Annamarie Song MD [address] [facility] IM MEDICAL ONCOLOGY, [address] [place] [address] Medical Oncology 11/23/21 Jake León DO [address] [place], [place] [id number] Wound/Ostomy Nurse Surgery 10/18/22 Hu Fisher MD [address] [facility] [phone] [place] [address] Surgeon Colon and Rectal Surgery 05/18/23 Brody Lawson MD [address] [place] [address] Consulting Physician Plastic Surgery 07/19/23 Heidi Briceño NP [address] [place] [address] Nurse Practitioner Family Medicine 12/07/23 documented as of this encounter
--- OUTSIDE RECORDS SUMMARY | 2024-10-20 11:30 | XMS_ITS | Clinical Summary ---
Author Organization [facility] Address [address] [place] [address] Care Team Providers Care Conveyor Operator Name Role Phone Cholo Vela MD Primary Care Provider [phone] Allergies No known active allergies Medications HYDROCHLOROTHIAZIDE 25 MG tabletIndications:E ssential (primary) hypertension TAKE ONE TABLET BY MOUTH DAILY 90 tablet 1 Active GABAPENTIN 300 MG capsuleIndications: Muscle spasms of neck TAKE ONE CAPSULE BY MOUTH THREE TIMES A DAY 270 capsule 1 Active calcium carbonate 1250 (500 Ca) MG chewable tablet Acti ve fish oil 1000 MG Cap capsule Active Pediatric Multivitamins-Fl (MULTIVITAMINS/FLUO RIDE) 0.5 MG Chew Tab Active vitamin E 1000 UNIT Cap Active vitamin B-12 500 MCG tablet Take 1 tablet by mouth daily. Active multi vitamin/minerals (MULTI-VITAMIN DAILY) tablet Take 1 tablet by mouth daily. Active cholecalciferol (EQL VITAMIN D-3) 400 UNITS Tab Take 1 tablet by mouth daily. Active Ibuprofen 200 MG capsule Take 200 mg by mouth every 6 (six) hours as needed. Active propranolol 80 MG tabletIndications:E ssential hypertension Take 1 tablet (80 mg total) by mouth daily. 90 tablet 1 Active ALPRAZOLAM 0.25 MG tabletIndications:A nxiety TAKE 1 TABLET (0.25 MG TOTAL) BY MOUTH 2 (TWO) TIMES DAILY NEEDED. 60 tablet 1 1 Active AMITRIPTYLINE 25 MG tabletIndications:A nxiety TAKE ONE TABLET BY MOUTH EVERY DAY 30 tablet 2 Active cyclobenzaprine 10 MG tabletIndications:M uscle spasms of neck TAKE HALF A TABLET BY MOUTH EVERY MORNING AND EVERY EVENING AND TAKE ONE TABLET AT BEDTIME 60 tablet 2 Active ROSUVASTATIN 10 MG tabletIndications:H yperlipidemia, unspecified hyperlipidemia type TAKE ONE TABLET BY MOUTH AT BEDTIME 90 tablet 3 2 Active Active Problems Problem Noted Date Diagnosed Date Essential hypertension 09/22/2020 Hyperlipidemia 09/22/2020 Anxiety 09/22/2020 Primary insomnia 09/22/2020 Chronic neck pain 09/22/2020 Chronic pain of both hips 09/22/2020 Muscle spasms of neck 09/22/2020 Immunizations Immunization Administration Dates Next Due Influenza (Generic) 11/16/2012 Influenza Adult (Generic) 11/10/2019,10/29/2013 PFIZER COVID-19 (ORIGINAL FO RMULATION, PURPLE CAP) mRNA, LNP-S, PF, 30 MCG/0.3 ML DOSE 04/30/2020,04/02/2020 Tdap (Generic) 11/29/2011 Family History Medical History Relation Comments Breast Cancer Maternal Aunt HALF AUNT Breast Cancer Mother Breast Cancer Other Relation Status Comments Maternal Aunt Mother Other Alive Social History Tobacco Use Types Packs/Day Years Used Date Smoking Tobacco: Never Smokeless Tobacco: Never Tobacco Cessation:Counseling Given: No Alcohol Use Standard Drinks/Week Comments Never 0 (1 standard drink = 0.6 oz pur e alcohol) PHQ-2 Answer Date Recorded PHQ-2 Score - If the patient scores above 3, please move on to questions 3-9 4 09/22/2020 Comments No Sex and Gender Information Value Date Recorded Sex Assigned at Female 11/11/2022 9:43 AM CDT Legal Sex Female 4:12 PM CDT Gender Identity Female 11/11/2022 9:43 AM CDT Sexual Orientation Straight 11/11/2022 9: 43 AM CDT Last Filed Vital Signs Vital Sign Reading Time Taken Comments Blood Pressure 124/67 09/22/2020 11:28 AM CDT Pulse 66 09/22/2020 11:28 AM CDT Temperature 36.2 C (97.1 F) 09/22/2020 11:28 AM CDT Respiratory Rate 16 09/22/2020 11:28 AM CDT Oxygen Saturation 96% 09/22/2020 11:28 AM CDT Inhaled Oxygen Concentration - - Weight 79.6 kg (175 lb 6.4 oz) 09/22/2020 11:28 AM CDT Height 162.6 cm (5' 4) 09/22/2020 11:28 AM CDT Body Mass Index 30.11 09/22/2020 11:28 AM CDT Plan of Treatment Health Maintenance Due Date Last Done Comments Colorectal Cancer Screening Colonoscopy (10 Years) 1950 Hepatitis C 1968 Annual Medicare Wellness Visit 2015 Zoster Vaccines (2 of 2) 01/24/2023 11/29/2022 COVID-19 Vaccine ( - season) 2024 12/25/2020, 04/30/2020, 04/02/2020 Mammogram Screening 11/21/2025 11/22/2023, 11/18/2022, 10/13/2021, Additional history exists DTaP, Tdap and Td Vaccines (3 - Td or Tdap) 11/29/2032 11/29/2022, 11/29/2011 Pneumococcal Vaccine: 50+ Years Completed 11/24/2022 Dexa Scan (General) Completed 11/25/2022, 8 RSV Immunization or 60+ Years Completed 01/10/2023 Meningococcal B Vaccine Aged Out No l onger eligible based on patient's age to complete this topic Meningococcal Vaccine Aged Out No matt pedro eligible based on patient's age to complete this topic RSV Immunizations Under 20 Months Aged Out No longer eligible based on patient's age to complete this topic Procedures Procedure Name Priority Date/Time Associated Diagnosis Comments MG SCREENING W MAIK MARTIN DIGI Routine 11/22/2023 10:52 AM CDT Screening mammogram, encounter for BONE DENSITY/DEXA Routine 11/25/2022 10: 57 AM CDT Post-menopausal from Last 3 Months or Most Recently Relevant to Health Maintenance Results * MG SCREENING W MAIK MARTIN DIGI (11/22/2023 10:52 AM CDT) Anatomical Region Laterality Modality Breast Bilateral Mammography 11/22/2023 3:29 PM CDT Impressions 11/22/2023 3:35 PM CDT ===== IMPRESSION: ===== 1. Stable mammographic appearance with no new findings to suggest malignancy in either breast. Assessment: ACR BI-RADS 2 - BENIGN FINDING(S) Recommendation: 1:Routine Screening Bilateral Comments: Ordered By: CHOLO VELA Interpreted By: Simona Vargas, 11/22/2023 3:29 PM Narrative 11/22/2023 3:35 PM CDT [facility] [address] [place] [address] EXAMINATION: Digital bilateral screening mammogram with 3-D tomosynthesis EXAM DATE/TIME: 11/22/2023 10:16 AM REASON FOR EXAM: routine Mother with breast carcinoma in her 60s. Maternal aunt with breast carcinoma. Personal history of rectal carcinoma in 2021. Currently on chemotherapy. COMPARISON: 09/24/2021. 11/18/2022. Technique: Digital screening mammography of both breasts was performed in addition to 3-D Tomosynthesis technique. This study was read with the assistance of a computer-aided detection system. Tissue density: The breasts are heterogeneously dense, which may obscure small masses. Findings: There is no new focal asymmetry, dominant mass lesion, area of skin thickening, or cluster of suspicious appearing calcifications in either breast to suggest malignancy. us Cholo Vela MD MAMMO Final Result * BONE DENSITY/DEXA (11/25/2022 10:57 AM CDT) Anatomical Region Laterality Modality Bone Bone Density 11/25/2022 4:16 PM CDT Impressions 11/25/2022 4:18 PM CDT IMPRESSION:===== The patient bone mineral density is osteoporotic according to the World Health Organization (WHO) criteria. Referred By: CHOLO VELA Interpreted By: Pierre Meneses MD, 11/25/2022 4:16 PM Narrative 11/25/2022 4:18 PM CDT EXAMINATION: Bone Density Axial EXAM DATE/TIME: 11/25/2022 10:45 AM REASON FOR EXAM: n/a Post menopausal status COMPARISON: 07/27/2017 FINDINGS: DEXA bone densitometry The bone mineral density (BMD) was determined by dual-energy x-ray absorptiometry, the results are as follows: AP Lumbar Spine L1 through L4 BMD Patient (GM/SQCM): 0.949 T-Score (Standard deviations from young adult peak bone density): -0.9 and a Z- Score of 1.4. osteoarthritis may falsely increase bone mineral density measured in the lumbar spine. There has been interval decrease from prior exam. Right mean femoral neck: BMD Patient (GM/SQCM): 0.531 T-Score (Standard deviations from young adult peak bone density): -2.9 and a Z- Score of -0.9. Total right hip: BMD Patient (GM/SQCM): 0.813 T-Score (Standard deviations from young adult peak bone density): -1.1 and a Z- Score of 0.6. 10 year fracture risk using FRAX, fracture risk assessment tool: Not reported as T value is below -2.5 ===== Procedure Note Pierre Meneses MD - 11/25/2022 EXAMINATION: Bone Density Axial EXAM DATE/TIME: 11/25/2022 10:45 AM REASON FOR EXAM: n/a Post menopausal status COMPARISON: 07/27/2017 FINDINGS: DEXA bone densitometry The bone mineral density (BMD) was determined bydual-energy x-ray absorptiometry, the results are as follows: AP Lumbar Spine L1 through L4 BMD Patient (GM/SQCM): 0.949 T-Score (Standard deviations from young adult peak bonedensity): -0.9 and a Z- Score of 1.4. osteoarthritis may falsely increasebone mineral density measured in the lumbar spine. There has beeninterval decrease from prior exam. Right mean femoral neck: BMD Patient (GM/SQCM): 0.531 T-Score (Standard deviations from young adult peak bonedensity): -2.9 and a Z- Score of -0.9. Total right hip: BMD Patient (GM/SQCM): 0.813 T-Score (Standard deviations from young adult peak bonedensity): -1.1 and a Z- Score of 0.6. 10 year fracture risk using FRAX, fracture risk assessment tool: Not reported as T value is below -2.5 ===== IMPRESSION:===== The patient bone mineral density is osteoporotic according to the WorldHealth Organization (WHO) criteria. Referred By: CHOLO VELA Interpreted By: Pierre Meneses MD, 11/25/2022 4:16 PM Cholo Vela MD DEXA Final Result from Last 3 Months or Most Recently Relevant to Health Maintenance Insurance MEDICARE FOR[facility]LY [facility] Care Teams Conveyor Operator Relationship Specialty Start Date End Date Cholo Vela MD [address] [facility] [address] [place] [address] PCP - General FAMILY PRACTICE 09/24/21
--- OUTSIDE RECORDS SUMMARY | 2024-10-20 11:30 | XMS_ITS | Encounter Summary ---
Author Organization [facility] Address [address] [place] [address] Phone Care Team Providers Care Helpdesk Analyst Name Role Phone Cholo Vela MD Primary Care Provider Jake León DO Unavailable [phone] Dunia Eason MD Unavailable [phone] Herberth Chao MD Unavailable [phone] Nelida Mccray MD Unavailable Annamarie Song MD Unavailable [phone] Jake León DO Unavailable [phone] Hu Fisher MD Unavailable [phone] Brody Lawson MD Unavailable [phone] Heidi Briceño NP Unavailable Encounter Details Date Type Department Care Team (Latest Contact Info) Description 07/02/2022 Orders Only [facility] Scanning, Provider Social History Tobacco Use Types Packs/Day Years Used Date Smoking Tobacco: Never Passive Smoke Exposure: Past Smokeless Tobacco: Never AUDIT-C Answer Date Recorded Q1: How often do you have a drink containing alcohol? Never 04/09/2022 Q2: How many drinks containi ng alcohol do you have on a typical day when you are drinking? Patient does not drink Q3: How often do you have si x or more drinks on one occasion? Never 04/09/2022 PHQ-2 Answer Date Recorded PHQ-2 Total Score (If total score is 3 or more points, staff should administer the PHQ-9) 0 05/19/2022 Comments No Sex and Gender Information Value Date Recorded Sex Assigned at Not on file Legal Sex Female 8:01 PM VENEER GLUE JOINTER FEEDBACK Gender Identity Female 01/27/2021 11:55 AM VENEER GLUE JOINTER FEEDBACK Sexual Orientation Straight 01/27/2021 11 :55 AM VENEER GLUE JOINTER FEEDBACK documented as of this encounter Plan of Treatment Not on file documented as of this encounter Procedures Procedure Name Priority Date/Time Associated Diagnosis Comments SCAN - PATHOLOGY 07/02/2022 documented in this encounter Results * SCAN - PATHOLOGY (07/02/2022) Provider Scanning Final Result documented in this encounter Visit Diagnoses Not on filedocumented in this encounter Care Teams Helpdesk Analyst Relationship Specialty Start Date End Date Cholo Vela MD [address] [place] [address] PCP - General Family Medicine 07/07/21 Jake León DO [address] [facility] [address] [place] [address] Referring Physician Surgery 07/30/21 Dunia Eason MD [phone] [place] [address] Surgeon General Surgery 08/07/21 05/17/23 Herberth Chao MD [address] [facility] [address] [place] [id number] Medical Oncologist Hematology 08/12/21 Nelida Mccray MD [address] [facility] [address] [place] [address] Radiation Oncologist Radiation Oncology 08/12/21 Annamarie Song MD [address] [facility] DIV MEDICAL ONCOLOGY[address] [place] [address] Medical Oncology 11/23/21 Jake León DO [address] [facility] [address] [place] [address] Imcu Nurse Surgery 10/18/22 Hu Fisher MD [address] [facility] [id number] [place] [address] Surgeon Colon and Rectal Surgery 05/18/23 Pet, Brody Valadez MD [address] [place] [address] Consulting Physician Plastic Surgery 07/19/23 Heidi Briceño NP [address] [facility] [address] [place] [address] Nurse Practitioner Family Medicine 12/07/23 documented as of this encounter
--- OUTSIDE RECORDS SUMMARY | 2024-10-20 11:30 | XMS_ITS | Encounter Summary ---
Author Organization [facility] Address [address] [place] [address] Phone Care Team Providers Care Melt Room Operator Name Role Phone Cholo Vela MD Primary Care Provider Jake León DO Unavailable [phone] Dunia Eason MD Unavailable [phone] Herberth Chao MD Unavailable [phone] Nelida Mccray MD Unavailable Annamarie Song MD Unavailable [phone] Jake León DO Unavailable [phone] Hu Fisher MD Unavailable [phone] Brody Lawson MD Unavailable [phone] Heidi Briceño NP Unavailable Encounter Details Date Type Department Care Team (Latest Contact Info) Description 04/09/2022 Orders Only [facility] Scanning, Provider [...] points, staff should administer the PHQ-9) 3 03/23/2022 Comments No Sex and Gender Information Value Date Recorded Sex Assigned at Not on file Legal Sex Female 8:01 PM TAR BOILER Gender Identity Female 01/27/2021 11:55 AM TAR BOILER Sexual Orientation Straight 01/27/2021 11 :55 AM TAR BOILER documented as of this encounter Functional Status documented as of this encounter Plan of Treatment Not on file documented as of this encounter Procedures Procedure Name Priority Date/Time Associated Diagnosis Comments SCAN - LABS 04/09/2022 documented in this encounter Results * SCAN - LABS (04/09/2022) us Provider Scanning Final Result documented in this encounter Visit Diagnoses Not on filedocumented in this encounter Care Teams Melt Room Operator Relationship Specialty Start Date End Date Cholo Vela MD [address] [place] [address] PCP - General Family Medicine 07/07/21 Jake León DO [address] [facility] [address] [place] [address] Referring Physician Surgery 07/30/21 Dunia Eason MD [phone] [place] [address] Surgeon General Surgery 08/07/21 05/17/23 Herberth Chao MD [address] [facility] [address] [place] [id number] Medical Oncologist Hematology 08/12/21 Nelida Mccray MD [address] [facility] [facility] # [facility] [address] [place] [id number] Radiation Oncologist Radiation Oncology 08/12/21 Annamarie Song MD [address] [facility] DIV IM MEDICAL ONCOLOGY, [address], [address], [address] [place] [address] Medical Oncology 11/23/21 Jake León DO [address] [facility] [address] [place] [address] Load Out Person Surgery 10/18/22 Hu Fisher MD [address] [facility] [phone] [place] [address] Surgeon Colon and Rectal Surgery 05/18/23 Lulu, Brody Valadez MD [address] [place] [address] Consulting Physician Plastic Surgery 07/19/23 Heidi Briceño NP [address] [facility] [address] [place] [address] Nurse Practitioner Family Medicine 12/07/23 documented as of this encounter
[2024-10-20 12:32] LABS: Hematocrit 36.9 % (35.0-42.0); Hemoglobin 11.2 g/dL (11.7-13.8); Immature Granulocyte Percent A 0.2 % (0.0-0.0); Lymphocytes Absolute Auto 1.72 K/mm3 (1.10-4.50); Mean Corpuscular HGB Conc 30.4 g/dL (32-36); Mean Corpuscular Hemoglobin 23.5 pg (27.0-31.0); Mean Corpuscular Volume 77.4 fL (78.0-102.0); Nucleated Red Blood Cells Absolute Auto 0.00 K/mm3 (0.00-0.00); Nucleated Red Blood Cells Perc 0.0 % (0-0.0); Platelet Count Result 287 K/mm3 (150-420); Red Blood Count 4.77 M/mm3 (4.20-5.40); White Blood Count 9.8 K/mm3 (4.8-10.8)
[2024-10-20 12:43] LABS: Alanine Aminotransferase 13 U/L (6-35); Albumin Level 4.3 g/dL (3.5-5.1); Alkaline Phosphatase 87 U/L (38-126); Anion Gap 9 mmol/L (4-12); Aspartate Amino Transferase 25 U/L (14-36); Bilirubin,Total 0.5 mg/dL (0.2-1.3); Blood Urea Nitrogen 21 mg/dL (7-17); Calcium 10.1 mg/dL (8.4-10.2); Carbon Dioxide 26 mmol/L (22-30); Chloride 103 mmol/L (98-107); Estimated CRCL calculation 66 ml/min; Estimated Glomerular Filt Rate > 60; Glucose 118 mg/dL (65-110); Lipase 85 U/L (23-300); Osmolality Calculated 290 mOsm/kg (285-295); Potassium 4.8 mmol/L (3.4-5.0); Sodium 138 mmol/L (137-145); Total Protein 7.7 g/dL (6.3-8.2)
[2024-10-20 12:45] LABS: INR 0.9; Prothrombin Time 10.3 Seconds (9.50-12.1)
[2024-10-20 12:46] LABS: Partial Thromboplastin Time 26.2 Sec (23.9-30.70)
--- NOTE | 2024-10-20 12:53 | PC.NURSE ---
Patient taken down to CT
[2024-10-20] MEDS: SODIUM CHLORIDE 0.9% IV 1,000 ML 999 ML IV CONT (13:19)
== END 2024-10-20 17:15 | disposition short-term general hospital (02) ==
PROVIDERS: Emergency Provider Emergency Medicine; PCP Family Medicine
DX: K44.9 Diaphragmatic hernia without obstruction or gangrene (principal); K56.609 Unspecified intestinal obstruction, unspecified as to partial versus complete obstruction; I10 Essential (primary) hypertension
CPT/HCPCS: 36415; 74018; 74019; 74177; 80053; 83605; 83690; 85025; 85610; 85730; 96360; 99285; J7030; Q9967